=== PATIENT | female | born 1970 | race Caucasian/White ===

== ENCOUNTER 2017-06-15 08:19 | Day surgery (SDC) | payer OTHER ==
[2017-06-15] MEDS ORDERED: BENADRYL 25 MG CAPSULE PO PRN (08:58)
[2017-06-15] MEDS ORDERED: Sodium Chloride 0.9% 1000 ML 1,000 ML ONE (09:26)
[2017-06-15 09:36] VITALS: O2SAT 100
[2017-06-15 18:03] VITALS: BP 168/96; PULSE 88
== END 2017-06-15 17:00 | disposition home or self-care (01) ==
LOC: EDSTATUS 08:19 → INFUSION 08:19
PROVIDERS: ATTEND Family Medicine
DX: D64.9 Anemia, unspecified (principal)
CPT/HCPCS: 36415; 36430; 86850; 86900; 86901; 86922; 96365; 96366; P9016; A9270-GY

== ENCOUNTER 2017-06-22 06:00 | Day surgery (SDC) | payer OTHER ==
[2017-06-22] MEDS ORDERED: DIPRIVAN 200 MG/20 ML IV ONE (06:01)
[2017-06-22] MEDS ORDERED: Versed 2 MG/2 ML Injection IV ONE (06:01)
[2017-06-22] MEDS ORDERED: Lactated Ringers 1,000 ML IV SCH (06:30)
[2017-06-22 08:51] LABS: Mean Cell Volume 74.4 fl (78-100); Mean Platelet Volume 8.4 fl (6-9.5); Platelet Count 499 K/mm3 (150-450); Red Blood Count 4.38 M/mm3 (4.1-5.4); Red Cell Distribution Width 24.3 % (11.5-14.0); White Blood Count 9.1 K/mm3 (4.0-10.5)
[2017-06-22 08:52] LABS: Mean Corpuscular Hemoglobin 20.7 pg (26-32)
[2017-06-22 10:06] VITALS: O2SAT 97
[2017-06-22 10:13] VITALS: BP 151/98; PULSE 81
--- NOTE | 2017-06-22 10:45 | OP ---
SURGERY DATE/TIME: 06/22/2017 0755 PREOPERATIVE DIAGNOSIS: Anemia iron deficiency type. POSTOPERATIVE DIAGNOSIS: Duodenal ulcer. PROCEDURE: Esophagogastroduodenoscopy with biopsy. SURGEON: Dr. Manrique. ANESTHESIA: Medications were given by the anesthesia department. BRIEF HISTORY: The patient is a 46 year old white female who presents to the hospital now for endoscopic evaluation. She was found to have a hemoglobin of 5.2. She was given 2 units of blood. It did appear to be an iron deficiency-type anemia. The patient was felt the need to have endoscopic evaluation. She was appraised of the risks of the procedure including the risk of perforation, phlebitis, untoward reaction to medication, bleeding and missed lesions. The patient verbalized her understanding and desired to have the procedure performed. DESCRIPTION OF PROCEDURE: The patient was given the medications by the anesthesia department. She had continuous pulse oximetry, ECG monitoring, intermittent blood pressure monitoring and tidal CO2 monitoring during the examination. She was placed in the left lateral decubitus position. A bite block was placed and the flexible Olympus gastroscope was used to intubate the oropharynx. A view of the larynx was obtained and this was normal. The scope was passed in the esophagus which was normal throughout its length. The stomach was entered where normal gastric rugal folds were seen and these distended nicely with insufflation of air. The scope was passed along the greater curvature of the stomach to the antrum where there appeared to be erosion and developing ulcer present in prepyloric area. The pylorus was encountered and intubated. The duodenum was inspected and found duodenal ulcer in the duodenal bulb. There was no active bleeding in this area at this time. As the scope was withdrawn and retroflex view was obtained of the lesser curvature, fundus and cardia regions of the stomach and these appeared normal. The scope was then redirected towards the gastric antrum where we did note a little bit of bleeding after withdrawal of the scope to the pylorus. Biopsies were obtained in the antrum to rule out the presence of Helicobacter pylori-type organisms. It was noted that the patient was taking naproxen regularly and aspirin intermittently prior to the development of her anemia. The scope was removed from the patient who tolerated the procedure well and was sent back to the [facility] in good condition.
== END 2017-06-22 09:20 | disposition home or self-care (01) ==
LOC: SDC 06:00
PROVIDERS: ATTEND Family Medicine
PROC: 0DB78ZX Excision of Stomach, Pylorus, Via Natural or Artificial Opening Endoscopic, Diagnostic (ICD-10-PCS; principal; 2017-06-22)
DX: K26.9 Duodenal ulcer, unspecified as acute or chronic, without hemorrhage or perforation (principal)
CPT/HCPCS: 00740; 36415; 85027; J2250; J2704

== ENCOUNTER 2017-10-15 06:05 | Day surgery (SDC) | payer OTHER ==
[2017-10-15] MEDS ORDERED: DIPRIVAN 200 MG/20 ML IV ONE (06:06)
[2017-10-15] MEDS ORDERED: Ketamine HCl 50 MG/ML IV ONE (06:06)
[2017-10-15] MEDS ORDERED: Lactated Ringers 1,000 ML IV ONE (06:16)
[2017-10-15] MEDS ORDERED: Lactated Ringers 1,000 ML IV SCH (06:30)
[2017-10-15 08:40] VITALS: O2SAT 99
[2017-10-15 08:44] VITALS: BP 149/110; PULSE 74
--- NOTE | 2017-10-15 08:59 | OP ---
SURGERY DATE/TIME: 10/15/2017 0658 PREOPERATIVE DIAGNOSIS: Duodenal ulcer. POSTOPERATIVE DIAGNOSIS: Duodenitis, healed ulcer. PROCEDURE: Esophagogastroduodenoscopy. SURGEON: Dr. Manrique. ANESTHESIA: Medications were given by the anesthesia department. BRIEF HISTORY: The patient is a 47 year old white female with known history of ulcer disease. The patient reports that she has somewhat improved but the patient was felt the need have surveillance to be sure the ulcerated area had healed. Biopsies previously did not show any evidence of malignancy but due to the proximity to the stomach there was concern about potential and wanting to be sure that the area had completely cleared up. The patient was reappraised of the risks of the procedure including the risk of perforation, phlebitis, untoward reaction to medication, bleeding and missed lesions. The patient verbalized her understanding and desired to have the procedure performed. DESCRIPTION OF PROCEDURE: The patient had continuous pulse oximetry, ECG monitoring, intermittent blood pressure monitoring and tidal CO2 monitoring during the examination. She was placed in the left lateral decubitus position. A bite block was placed and the flexible Olympus gastroscope was used to intubate the oropharynx. A view of the larynx was obtained and was normal. The scope was easily passed in the esophagus which was normal throughout its length. The stomach was entered where normal gastric rugal folds were seen. These distended nicely with insufflation of air. The scope was passed along the greater curvature of the stomach to the antrum. The pylorus was encountered and intubated. The duodenum was found to be somewhat erythematous and edematous but the ulcerated area previously seen had completely healed over. The area was traversed at least three times to carefully inspect the area. It was somewhat tight but we were able to traverse it with ease and no problems were noted with this portion of the examination. The scope was withdrawn towards the stomach. Again, a retroflex view was obtained of the lesser curvature, fundus and cardia regions of the stomach and these appeared normal. The scope was then withdrawn from the patient who tolerated the procedure well and was sent back to outpatient recovery in good condition.
== END 2017-10-15 08:30 | disposition home or self-care (01) ==
LOC: SDC 06:05
PROVIDERS: ATTEND Family Medicine
PROC: 0DJ08ZZ Inspection of Upper Intestinal Tract, Via Natural or Artificial Opening Endoscopic (ICD-10-PCS; principal; 2017-10-15)
DX: K29.80 Duodenitis without bleeding (principal); Z87.11 Personal history of peptic ulcer disease
CPT/HCPCS: 00740; J2704

== ENCOUNTER 2020-06-27 18:50 | Emergency (ER) | payer OTHER ==
[2020-06-27] MEDS ORDERED: Sodium Chloride 0.9% 1000 ML 1,000 ML IV STA (19:31)
--- NOTE | 2020-06-27 19:50 | ERPHSYRPT ---
- History of Present Illness Time Seen by Provider: 06/27/20 19:15 Source: patient Patient Subjective Stated Complaint: pt c/o dizziness, weakness, chills, cold sweats, malaise Triage Nursing Assessment: pt c/o dizziness, weakness, chills, cold sweats, vomiting and malaise. She woke up this morning and was dizzy/light headed, ears felt full of congestion, very tired, unable to walk from one room to another with stopping to rest in between. Pt began vomiting at 1730 x2, denies any diarrhea or cough or temp. Lungs clear, heart tones reg, abd soft with active bs x4 quad, nontender. Physician History: Patient is a 49-year-old female presents to our ED with complaints of dizziness weakness chills cold sweats malaise and vomiting that started this morning. Symptoms have been ongoing. Patient feels weak. No COVID exposure that she is aware of. No chest pain or shortness of breath. No diarrhea. No rash. Symptoms are mild to moderate in intensity. No specific worsening or improving factors. Patient voices no other complaints at this time. Timing/Duration: today Severity: moderate Modifying Factors: Improves With: nothing Associated Symptoms: nausea, vomiting, shortness of breath, chills, malaise, No rash Allergies/Adverse Reactions: No Known Drug Allergies Allergy (Verified 06/27/20 19:20) Home Medications: Multivitamin [Daily Multivitamin] 1 each PO DAILY 06/15/17 [History] Ferrous Sulfate 325 mg [Feosol 325 mg] 325 mg PO DAILY 06/22/17 [History] [place]-3 Fatty Acids/Fish Oil [Fish Oil 1,000 mg Capsule] 1,000 mg PO DAILY 10/15/17 [History] Cetirizine HCl [Zyrtec] 10 mg PO DAILY 06/27/20 [History] Esomeprazole Magnesium [Nexium] 20 mg PO DAILY 06/27/20 [History] Hx Tetanus, Diphtheria Vaccination/Date Given: No Hx Influenza Vaccination/Date Given: No Hx Pneumococcal Vaccination/Date Given: No Immunizations Up to Date: No Travel Risk - International Travel Have you traveled outside of the country in past 3 weeks: No - Coronavirus Screening Symptoms: Vomiting/Diarrhea Close contact with a COVID-19 positive Pt in past 14-21 Days: No - Review of Systems Constitutional: No Symptoms, No Fever, No Chills Eyes: No Symptoms Ears, Nose, & Throat: No Symptoms Respiratory: No Symptoms, No Cough, No Dyspnea Cardiac: No Symptoms, No Chest Pain, No Edema, No Syncope Abdominal/Gastrointestinal: No Symptoms, No Abdominal Pain, No Nausea, No Vomiting, No Diarrhea Genitourinary Symptoms: No Symptoms, No Dysuria Musculoskeletal: No Symptoms, No Back Pain, No Neck Pain Skin: No Symptoms, No Rash Neurological: No Symptoms, No Dizziness, No Focal Weakness, No Sensory Changes Psychological: No Symptoms Endocrine: No Symptoms Hematologic/Lymphatic: No Symptoms Immunological/Allergic: No Symptoms All Other Systems: Reviewed and Negative - Past Medical History Pertinent Past Medical History: Yes Neurological History: Other ENT History: No Pertinent History Cardiac History: No Pertinent History Respiratory History: No Pertinent History Endocrine Medical History: No Pertinent History Musculoskeletal History: Arthritis GI Medical History: Ulcer History: No Pertinent History Psycho-Social History: Anxiety Female Reproductive Disorders: No Pertinent History Other Medical History: anemia. upper spinal/nerve pain - Past Surgical History Past Surgical History: Yes Neuro Surgical History: No Pertinent History Cardiac: No Pertinent History Respiratory: No Pertinent History Gastrointestinal: No Pertinent History Genitourinary: No Pertinent History Musculoskeletal: No Pertinent History Female Surgical History: Hysterectomy Other Surgical History: egd - Social History Smoking Status: Current every day smoker How long have you smoked: 20 yrs Exposure to second hand smoke: No Drug Use: none Patient Lives Alone: No - Female History Hx Now: No - Nursing Vital Signs Nursing Vital Signs: Initial Vital Signs Temperature 98.1 F 06/27/20 19:08 Pulse Rate 96 H 06/27/20 19:08 Respiratory Rate 18 06/27/20 19:08 Blood Pressure 119/82 06/27/20 19:08 O2 Sat by Pulse Oximetry 99 06/27/20 19:08 Pain Scale Pain Intensity 0 - Physical Exam General Appearance: no apparent distress, alert Eye Exam: PERRL/EOMI, eyes nml inspection Ears, Nose, Throat Exam: normal ENT inspection, TMs normal, pharynx normal, moist mucous membranes Neck Exam: normal inspection, non-tender, supple, full range of motion Respiratory Exam: normal breath sounds, lungs clear, No respiratory distress Cardiovascular Exam: regular rate/rhythm, normal heart sounds, normal peripheral pulses Gastrointestinal/Abdomen Exam: soft, normal bowel sounds, No tenderness, No mass Back Exam: normal inspection, normal range of motion, No CVA tenderness, No vertebral tenderness Extremity Exam: normal inspection, normal range of motion, pelvis stable Neurologic Exam: alert, oriented x 3, cooperative, normal mood/affect, nml c erebellar function, nml station & gait, sensation nml, No motor deficits Skin Exam: normal color, warm, dry, No rash Lymphatic Exam: No adenopathy SpO2 Interpretation: normal SpO2: 99 O2 Delivery: Room Air - Course Nursing assessment & vital signs reviewed: Yes EKG Interpreted by Me: RATE (49), Sinus Rhythm, Left [place] Deviation, NORMAL INTERVALS - Radiology Exams Chest X-ray Interpretation: Interpreted by me (Normal chest x-ray. No effusion no co nsolidation no infiltrate. Normal bony thorax.), Reviewed by me Ordered Tests: Active Orders 24 hr Category Date Time Status Monologist STAT Care 06/27/20 19:34 Active EKG-ER Only STAT Care 06/27/20 19:31 Active IV Insertion STAT Care 06/27/20 19:34 Active Pulse Oximetry (ED) STAT Care 06/27/20 19:31 Active CHEST 1 VIEW (PORTABLE) Stat Exams 06/27/20 19:31 Taken BLOOD CULTURE Stat Lab 06/27/20 20:10 Received CBC W DIFF Stat Lab 06/27/20 20:10 Completed CMP Stat Lab 06/27/20 20:10 Completed HCG,QUALITATIVE URINE Stat Lab 06/27/20 21:33 Completed UA W/RFX UR CULTURE Stat Lab 06/27/20 21:33 Completed Medication Summary Generic Name Dose Route Start Last Admin Trade Name Freq PRN Reason Stop Dose Admin Pantoprazole Sodium 80 mg/ 500 mls @ 50 mls/hr 06/27/20 22:30 Sodium Chloride IV 07/27/20 22:29 .Q10H HOWARD Discontinued Medications Generic Name Dose Route Start Last Admin Trade Name Freq PRN Reason Stop Dose Admin Sodium Chloride 1,000 mls @ 999 mls/hr 06/27/20 19:31 06/27/20 19:55 Sodium Chloride 0.9% 1000 Ml IV 06/27/20 20:31 999 mls/hr .Q1H1M STA Administration Sodium Chloride Confirm 06/27/20 19:51 Sodium Chloride 0.9% 1000 Ml Administered 06/27/20 19:52 Dose 1,000 mls @ ud .ROUTE .STK-MED ONE Sodium Chloride Confirm 06/27/20 22:21 Sodium Chloride 0.9% 500 Ml Administered 06/27/20 22:22 Dose 500 mls @ ud IV .STK-MED ONE Pantoprazole Sodium Confirm 06/27/20 22:21 Protonix 40 Mg Iv Administered 06/27/20 22:22 Dose 80 mg IV .STK-MED ONE Lab/Rad Data: Laboratory Result Diagrams 06/27/20 20:10 06/27/20 20:10 Laboratory Results 06/27/20 06/27/20 06/27/20 Range/Units 21:33 21:33 20:10 WBC (4.0-10.5) K/mm3 RBC (4.1-5.4) M/mm3 Hgb (12.0-16.0) gm/dl Hct (35-47) % MCV (78-100) fl MCH (26-32) pg MCHC (32-36) g/dl RDW (11.5-14.0) % Plt Count (150-450) K/mm3 MPV (7.5-11.0) fl Gran % (36.0-66.0) % Eos # (Auto) (0-0.5) Absolute Lymphs (auto) (1.0-4.6) Absolute Monos (auto) (0.0-1.3) Lymphocytes % (24.0-44.0) % Monocytes % (0.0-12.0) % Eosinophils % (0.00-5.0) % Basophils % (0.0-0.4) % Absolute Granulocytes (1.4-6.9) Basophils # (0-0.4) Sodium 137 (137-145) mmol/L Potassium 3.4 L (3.5-5.1) mmol/L Chloride 107 (98-107) mmol/L Carbon Dioxide 25 (22-30) mmol/L Anion Gap 8.6 (5-15) MEQ/L BUN 52 H (7-17) mg/dL Creatinine 0.55 (0.52-1.04) mg/dL Estimated GFR > 60.0 ML/MIN Glucose 122 H (74-106) mg/dL Calcium 8.2 L (8.4-10.2) mg/dL Total Bilirubin 0.30 (0.2-1.3) mg/dL AST 29 (14-36) U/L ALT 14 (0-35) U/L Alkaline Phosphatase 48 (38-126) U/L Serum Total Protein 6.1 L (6.3-8.2) g/dL Albumin 3.6 (3.5-5.0) g/dL Urine Color YELLOW (YELLOW) Urine Appearance CLEAR (CLEAR) Urine pH 6.0 (5-6) Ur Specific [place] 1.015 (1.005-1.025) Urine Protein NEGATIVE (Negative) Urine Ketones NEGATIVE (NEGATIVE) Urine Blood NEGATIVE (0-5) Alistair/ul Urine Nitrite NEGATIVE (NEGATIVE) Urine Bilirubin NEGATIVE (NEGATIVE) Urine Urobilinogen NEGATIVE (0-1) mg/dL Ur Leukocyte Esterase NEGATIVE (NEGATIVE) Urine WBC (Auto) 3-5 (0-5) /HPF Urine RBC (Auto) NONE (0-2) /HPF U Hyaline Cast (Auto) 0-2 (0-2) /LPF U Epithel Cells (Auto) RARE (FEW) /HPF Urine Bacteria (Auto) NONE (NEGATIVE) /HPF Urine Mucus (Auto) SLIGHT (NEGATIVE) /HPF Urine Culture Reflexed NO (NO) Urine Glucose NEGATIVE (NEGATIVE) mg/dL Urine HCG, Qual NEGATIVE (Negative) Influenza Type A Ag (NEGATIVE) Influenza Type B Ag (NEGATIVE) RSV (PCR) (Negative) 06/27/20 06/27/20 Range/Units 20:10 20:10 WBC 21.6 H (4.0-10.5) K/mm3 RBC 2.51 L (4.1-5.4) M/mm3 Hgb 8.5 L (12.0-16.0) gm/dl Hct 26.1 L (35-47) % MCV 104.0 H (78-100) fl MCH 33.9 H (26-32) pg MCHC 32.6 (32-36) g/dl RDW 11.8 (11.5-14.0) % Plt Count 289 (150-450) K/mm3 MPV 9.8 (7.5-11.0) fl Gran % 86.6 H (36.0-66.0) % Eos # (Auto) 0.03 (0-0.5) Absolute Lymphs (auto) 2.24 (1.0-4.6) Absolute Monos (auto) 0.59 (0.0-1.3) Lymphocytes % 10.4 L (24.0-44.0) % Monocytes % 2.7 (0.0-12.0) % Eosinophils % 0.1 (0.00-5.0) % Basophils % 0.2 (0.0-0.4) % Absolute Granulocytes 18.69 H (1.4-6.9) Basophils # 0.04 (0-0.4) Sodium (137-145) mmol/L Potassium (3.5-5.1) mmol/L Chloride (98-107) mmol/L Carbon Dioxide (22-30) mmol/L Anion Gap (5-15) MEQ/L BUN (7-17) mg/dL Creatinine (0.52-1.04) mg/dL Estimated GFR ML/MIN Glucose (74-106) mg/dL Calcium (8.4-10.2) mg/dL Total Bilirubin (0.2-1.3) mg/dL AST (14-36) U/L ALT (0-35) U/L Alkaline Phosphatase (38-126) U/L Serum Total Protein (6.3-8.2) g/dL Albumin (3.5-5.0) g/dL Urine Color (YELLOW) Urine Appearance (CLEAR) Urine pH (5-6) Ur Specific [place] (1.005-1.025) Urine Protein (Negative) Urine Ketones (NEGATIVE) Urine Blood (0-5) Alistair/ul Urine Nitrite (NEGATIVE) Urine Bilirubin (NEGATIVE) Urine Urobilinogen (0-1) mg/dL Ur Leukocyte Esterase (NEGATIVE) Urine WBC (Auto) (0-5) /HPF Urine RBC (Auto) (0-2) /HPF U Hyaline Cast (Auto) (0-2) /LPF U Epithel Cells (Auto) (FEW) /HPF Urine Bacteria (Auto) (NEGATIVE) /HPF Urine Mucus (Auto) (NEGATIVE) /HPF Urine Culture Reflexed (NO) Urine Glucose (NEGATIVE) mg/dL Urine HCG, Qual (Negative) Influenza Type A Ag NEGATIVE (NEGATIVE) Influenza Type B Ag NEGATIVE (NEGATIVE) RSV (PCR) NEGATIVE (Negative) - Progress Progress: improved Progress Note: 06/27/20 22:23 Patient reassessed. She feels better. Reveals a hemoglobin of 8.5. Leukocytosis of 21.6. Potassium of 3.4. BUN 52. Patient admits she has had a history of bleeding ulcer. Patient states that she has observed her stools to be darker than normal. Case discussed with Dr. Manrique. We will transfer patient to [facility] for hematology and GI consult. Plan of care discussed with patient. She agrees to transfer for higher level of care. Protonix infusion administered. 06/27/20 22:[address] Ceballos (Case discussed with Dr. Manrique. In light of patient's profound anemia and possible GI bleed we will transfer to [facility] for GI and hematology evaluation/consultation.) Counseled pt/family regarding: lab results, diagnosis, rad results - Departure Departure Disposition: Transfer Clinical Impression: Symptomatic anemia, Elevated BUN, GI bleed, Leukocytosis Condition: Stable Critical Care Time: No Referrals: JOSE CARLOS MANRIQUE [Primary Care Provider] -
[2020-06-27] MEDS ORDERED: Sodium Chloride 0.9% 1000 ML 1,000 ML ONE (19:51)
[2020-06-27 20:29] LABS: Absolute Neutrophil Ct (ANC) 18.69 (1.4-6.9); BASOPHIL % 0.2 % (0.0-0.4); Basophil (Absolute #) 0.04 (0-0.4); Eosinophil % 0.1 % (0.00-5.0); Eosinophil (Absolute #) 0.03 (0-0.5); Hematocrit 26.1 % (35-47); Hemoglobin 8.5 gm/dl (12.0-16.0); Lymphocyte (Absolute #) 2.24 (1.0-4.6); Lymphocytes % 10.4 % (24.0-44.0); Mean Corpuscular Hemoglobin 33.9 pg (26-32); Mean Corpuscular Hgb Concent. 32.6 g/dl (32-36); Mean Platelet Volume 9.8 fl (7.5-11.0); Monocyte (Absolute #) 0.59 (0.0-1.3); Monocytes % 2.7 % (0.0-12.0); Neutrophil % 86.6 % (36.0-66.0); Platelet Count 289 K/mm3 (150-450); Red Blood Count 2.51 M/mm3 (4.1-5.4); Red Cell Distribution Width 11.8 % (11.5-14.0); White Blood Count 21.6 K/mm3 (4.0-10.5)
[2020-06-27 20:46] LABS: ALBUMIN 3.6 g/dL (3.5-5.0); ALKALINE PHOSPHATASE 48 U/L (38-126); ANION GAP 8.6 MEQ/L (5-15); BLOOD UREA NITROGEN 52 mg/dL (7-17); CHLORIDE 107 mmol/L (98-107); Calcium 8.2 mg/dL (8.4-10.2); Carbon Dioxide 25 mmol/L (22-30); Creatinine 1 0.55 mg/dL (0.52-1.04); EST GLOMERULAR FILTRATION RATE > 60.0 ML/MIN; Glucose 122 mg/dL (74-106); Potassium 3.4 mmol/L (3.5-5.1); SGOT/AST 29 U/L (14-36); SGPT/ALT 14 U/L (0-35); SODIUM 137 mmol/L (137-145); Total Protein 6.1 g/dL (6.3-8.2)
[2020-06-27 21:12] LABS: INFLUENZA A NEGATIVE (NEGATIVE); INFLUENZA B NEGATIVE (NEGATIVE); RESPIRATORY SYNCTIAL VIRUS NEGATIVE (Negative)
[2020-06-27 22:00] LABS: Appearance CLEAR (CLEAR); Bilirubin NEGATIVE (NEGATIVE); Blood NEGATIVE Ery/ul (0-5); Epithelial Cells RARE /HPF (FEW); Glucose NEGATIVE (NEGATIVE); Hyaline Casts 0-2 /LPF (0-2); Ketones NEGATIVE (NEGATIVE); Leukocyte Esterase NEGATIVE (NEGATIVE); Mucus SLIGHT /HPF (NEGATIVE); Nitrite NEGATIVE (NEGATIVE); Protein,Urine Dip NEGATIVE (Negative); Specific Gravity 1.015 (1.005-1.025); Urobilinogen NEGATIVE mg/dL (0-1)
[2020-06-27 22:16] VITALS: O2SAT 99
[2020-06-27] MEDS ORDERED: PROTONIX 40 MG IV IV ONE (22:21)
[2020-06-27] MEDS ORDERED: Sodium Chloride 0.9% 500 ML 500 ML IV ONE (22:21)
[2020-06-27] MEDS ORDERED: PROTONIX 40 MG IV*** 80 MG in Sodium Chloride 0.9% 500 ML 500 ML IV SCH (22:30)
[2020-06-27 23:23] VITALS: BP 148/87; PULSE 99
--- NOTE | 2020-06-28 21:24 | XRAY ---
Exam: AP upright portable chest film from 06/27/2020. Comparison: None. Indication: Shortness of breath, cold sweats, vomiting for 1 day. Findings: The film was obtained in a mildly lordotic projection. The heart size and contour are normal. Both the ascending and descending thoracic aorta is moderately tortuous. An azygos fissure is seen within the medial right lung apex representing a normal variant. The remainder of the clarence and mediastinal structures appears unremarkable. The lungs are adequately inflated. No air space infiltrates, vascular congestion, pneumothorax, or pleural fluid is seen. No acute osseous process is seen. Impression: 1. No acute cardiopulmonary disease is seen.
== END 2020-06-27 23:14 | disposition short-term general hospital (02) ==
LOC: ED 18:50
DX: D64.89 Other specified anemias (principal); R94.4 Abnormal results of kidney function studies; K92.2 Gastrointestinal hemorrhage, unspecified; D72.829 Elevated white blood cell count, unspecified; Z79.899 Other long term (current) drug therapy; R42 Dizziness and giddiness; R53.81 Other malaise; R53.1 Weakness; R11.2 Nausea with vomiting, unspecified; R06.02 Shortness of breath
CPT/HCPCS: 36000; 36415; 71045; 80053; 81001; 84703; 85025; 87040; 87631; 93005; 93041; 94760; 96360; 96365; 99285

== ENCOUNTER 2022-05-06 10:20 | Inpatient (IN) | payer OTHER ==
[2022-05-06] MEDS ORDERED: BABY ASPIRIN 81 MG CHEW PO ONE (10:36)
--- NOTE | 2022-05-06 10:36 | ERPHSYRPT ---
- History of Present Illness Time Seen by Provider: 05/06/22 10:36 Historian: patient Exam Limitations: no limitations Physician History: This is a 51-year-old white female has a history of anxiety issues and presents with approximate 3-day history of headache body aches vomiting nausea chest pain and shortness of breath. Her daughter has similar symptoms. She is unable to hold oral intake in. She has a family history significant for cardiac issues. Activities at Onset: none Quality: aching Chest Pain Radiation: no radiation Severity of Pain-Max: mild Severity of Pain-Current: mild Modifying Factors: Improves With: nothing Associated Symptoms: nausea, vomiting, shortness of breath, headache, No abdominal pain Prior Chest Pain/Cardiac Workup: no prior chest pain Nitro Today/Relief: no nitro taken today Aspirin Treatment Today: no aspirin today Allergies/Adverse Reactions: No Known Drug Allergies Allergy (Verified 05/06/22 11:02) Home Medications: Multivitamin [Daily Multivitamin] 1 each PO DAILY 06/15/17 [History] Ferrous Sulfate 325 mg [Feosol 325 mg] 325 mg PO DAILY 06/22/17 [History] [place]-3 Fatty Acids/Fish Oil [Fish Oil 1,000 mg Capsule] 1,000 mg PO DAILY 10/15/17 [History] Cetirizine HCl [Zyrtec] 10 mg PO DAILY 06/27/20 [History] Esomeprazole Magnesium [Nexium] 20 mg PO DAILY 06/27/20 [History] Hx Tetanus, Diphtheria Vaccination/Date Given: No Hx Influenza Vaccination/Date Given: No Hx Pneumococcal Vaccination/Date Given: No Travel Risk - International Travel Have you traveled outside of the country in past 3 weeks: No - Coronavirus Screening Are you exhibiting any of the following symptoms?: Yes Symptoms: Shortness of Breath, Vomiting/Diarrhea, Headaches/Body Aches/Fatigue Close contact with a COVID-19 positive Pt in past 14-21 Days: No - Review of Systems Constitutional: No Symptoms Eyes: No Symptoms Ears, Nose, & Throat: No Symptoms Respiratory: No Symptoms Cardiac: Chest Pain Abdominal/Gastrointestinal: Nausea, Vomiting, No Abdominal Pain Genitourinary Symptoms: No Symptoms Musculoskeletal: Arthralgias, Myalgias Skin: No Symptoms Neurological: No Symptoms Psychological: No Symptoms Endocrine: No Symptoms Hematologic/Lymphatic: No Symptoms Immunological/Allergic: No Symptoms All Other Systems: Reviewed and Negative - Past Medical History Pertinent Past Medical History: Yes Neurological History: Other ENT History: No Pertinent History Cardiac History: No Pertinent History Respiratory History: No Pertinent History Endocrine Medical History: No Pertinent History Musculoskeletal History: Arthritis GI Medical History: Ulcer History: No Pertinent History Psycho-Social History: Anxiety Female Reproductive Disorders: No Pertinent History Other Medical History: anemia. upper spinal/nerve pain - Past Surgical History Past Surgical History: Yes Neuro Surgical History: No Pertinent History Cardiac: No Pertinent History Respiratory: No Pertinent History Gastrointestinal: No Pertinent History Genitourinary: No Pertinent History Musculoskeletal: No Pertinent History Female Surgical History: Hysterectomy Other Surgical History: egd - Social History Smoking Status: Current every day smoker How long have you smoked: 20 yrs Exposure to second hand smoke: No Drug Use: none Patient Lives Alone: No - Nursing Vital Signs Nursing Vital Signs: Initial Vital Signs Temperature 98.8 F 05/06/22 10:25 Pulse Rate 74 05/06/22 10:25 Respiratory Rate 20 05/06/22 10:25 Blood Pressure 191/131 05/06/22 10:25 O2 Sat by Pulse Oximetry 97 05/06/22 10:25 Pain Scale Pain Intensity 7 - Physical Exam General Appearance: no apparent distress, alert, anxiety Eye Exam: PERRL/EOMI, eyes nml inspection Ears, Nose, Throat Exam: normal ENT inspection, moist mucous membranes Neck Exam: normal inspection, non-tender, supple, full range of motion Respiratory Exam: normal breath sounds, chest tenderness, lungs clear, airway intact, No respiratory distress Cardiovascular Exam: regular rate/rhythm, normal heart sounds, normal peripheral pulses Gastrointestinal/Abdomen Exam: soft, normal bowel sounds, No tenderness Pelvic Exam: not done Rectal Exam: not done Back Exam: normal inspection, normal range of motion, No CVA tenderness, No vertebral tenderness Extremity Exam: normal inspection, normal range of motion, pelvis stable Neurologic Exam: alert, oriented x 3, cooperative, physical design engineer II-XII nml as tested, normal mood/affect, nml cerebellar function, nml station & gait, sensation nml Skin Exam: normal color, warm, dry Lymphatic Exam: No adenopathy SpO2 Interpretation: normal O2 Delivery: Room Air - Course Nursing assessment & vital signs reviewed: Yes EKG Interpreted by Me: RATE (71), Sinus Rhythm, NORMAL AXIS, NORMAL INTERVALS, NORMAL QRS, NORMAL ST-T, Other (No acute ischemic changes) Ordered Tests: Active Orders 24 hr Category Date Time Status Chyron Operator STAT Care 05/06/22 10:37 Active EKG-ER Only STAT Care 05/06/22 10:36 Active IV Insertion STAT Care 05/06/22 10:36 Active Pulse Oximetry (ED) STAT Care 05/06/22 10:36 Active CHEST 1 VIEW (PORTABLE) Stat Exams 05/06/22 10:37 Completed CHEST WITH CONTRAST [CT] Stat Exams 05/06/22 11:48 Completed CBC W DIFF Stat Lab 05/06/22 10:40 Completed CMP Stat Lab 05/06/22 10:40 Completed D-DIMER QUANTITATIVE Stat Lab 05/06/22 10:40 Completed Pine Screen Stat Lab 05/06/22 11:25 Completed TROPONIN Q3H Lab 05/06/22 10:40 Completed TROPONIN Q3H Lab 05/06/22 13:45 Ordered TROPONIN Q3H Lab 05/06/22 16:45 Ordered TROPONIN Q3H Lab 05/06/22 19:45 Ordered TROPONIN Q3H Lab 05/06/22 22:45 Ordered Transfer Order Routine Transfer 05/06/22 Ordered Medication Summary Discontinued Medications Generic Name Dose Route Start Last Admin Trade Name Freq PRN Reason Stop Dose Admin Aspirin 324 mg 05/06/22 10:36 05/06/22 10:45 Aspirin 81 Mg Tab.Chew PO 05/06/22 10:37 324 mg STAT ONE Administration Enalaprilat 1.25 mg 05/06/22 12:20 05/06/22 12:30 Enalaprilat 2.5 Mg Injection IV 05/06/22 12:21 1.25 mg STAT ONE Administration Enalaprilat Confirm 05/06/22 12:30 Enalaprilat 2.5 Mg Injection Administered 05/06/22 12:31 Dose 2.5 mg IV .STK-MED ONE Enoxaparin Sodium 70 mg 05/06/22 13:03 Enoxaparin Sodium 80 Mg/0.8 Ml Syringe SQ 05/06/22 13:04 STAT ONE Sodium Chloride 1,000 mls @ 999 mls/hr 05/06/22 11:13 05/06/22 12:31 Sodium Chloride 0.9% 1000 Ml IV 05/06/22 12:13 Infused .Q1H1M STA Infusion Sodium Chloride Confirm 05/06/22 11:16 Sodium Chloride 0.9% 1000 Ml Administered 05/06/22 11:17 Dose 1,000 mls @ ud .ROUTE .STK-MED ONE Ondansetron HCl 4 mg 05/06/22 11:13 05/06/22 11:17 Ondansetron Hcl 4 Mg/2 Ml Vial IV 05/06/22 11:14 4 mg STAT ONE Administration Ondansetron HCl Confirm 05/06/22 11:16 Ondansetron Hcl 4 Mg/2 Ml Vial Administered 05/06/22 11:17 Dose 4 mg .ROUTE .STK-MED ONE Potassium Chloride 10 meq 05/06/22 11:47 05/06/22 12:00 Potassium Chloride Tab 10 Meq Tab PO 05/06/22 11:48 10 meq STAT ONE Administration Potassium Chloride Confirm 05/06/22 12:00 Potassium Chloride Tab 10 Meq Tab Administered 05/06/22 12:01 Dose 10 meq PO .STK-MED ONE Lab/Rad Data: Laboratory Result Diagrams 05/06/22 10:40 05/06/22 10:40 Laboratory Results 05/06/22 05/06/22 05/06/22 Range/Units 11:26 11:25 10:40 WBC (4.0-10.5) x10^3/uL RBC (4.1-5.4) x10^6/uL Hgb (12.0-16.0) g/dL Hct (35-47) % MCV (78-100) fL MCH (26-32) pg MCHC (32-36) g/dL RDW (11.5-14.0) % Plt Count (150-450) x10^3/uL MPV (7.5-11.0) fL Gran % (36.0-66.0) % Immature Gran % (Auto) (0.00-0.4) % Nucleat RBC Rel Count (0.00-0.1) % Eos # (Auto) (0-0.5) x10^3/uL Immature Gran # (Auto) (0.00-0.03) x10^3u/L Absolute Lymphs (auto) (1.0-4.6) x10^3/uL Absolute Monos (auto) (0.0-1.3) x10^3/uL Absolute Nucleated RBC (0.00-0.01) x10^3u/L Lymphocytes % (24.0-44.0) % Monocytes % (0.0-12.0) % Eosinophils % (0.00-5.0) % Basophils % (0.0-0.4) % Absolute Granulocytes (1.4-6.9) x10^3/uL Basophils # (0-0.4) x10^3/uL D-Dimer (0.0-0.50) mg/L Sodium (137-145) mmol/L Potassium (3.5-5.1) mmol/L Chloride (98-107) mmol/L Carbon Dioxide (22-30) mmol/L Anion Gap (5-15) MEQ/L BUN (7-17) mg/dL Creatinine (0.52-1.04) mg/dL Estimated GFR ML/MIN Glucose (74-106) mg/dL Calcium (8.4-10.2) mg/dL Total Bilirubin (0.2-1.3) mg/dL AST (14-36) U/L ALT (0-35) U/L Alkaline Phosphatase (38-126) U/L Troponin I 0.028 (0.000-0.034) ng/mL Serum Total Protein (6.3-8.2) g/dL Albumin (3.5-5.0) g/dL Monoscreen NEGATIVE (Negative) Influenza Type A Ag NEGATIVE (NEGATIVE) Influenza Type B Ag NEGATIVE (NEGATIVE) RSV (PCR) NEGATIVE (Negative) SARS-CoV-2 (PCR) NEGATIVE (NEGATIVE) 05/06/22 05/06/22 05/06/22 Range/Units 10:40 10:40 10:40 WBC 14.6 H (4.0-10.5) x10^3/uL RBC 4.59 (4.1-5.4) x10^6/uL Hgb 15.5 (12.0-16.0) g/dL Hct 44.1 (35-47) % MCV 96.1 (78-100) fL MCH 33.8 H (26-32) pg MCHC 35.1 (32-36) g/dL RDW 11.1 L (11.5-14.0) % Plt Count 393 (150-450) x10^3/uL MPV 9.0 (7.5-11.0) fL Gran % 84.7 H (36.0-66.0) % Immature Gran % (Auto) 0.4 (0.00-0.4) % Nucleat RBC Rel Count 0.0 (0.00-0.1) % Eos # (Auto) 0.02 (0-0.5) x10^3/uL Immature Gran # (Auto) 0.06 H (0.00-0.03) x10^3u/L Absolute Lymphs (auto) 1.39 (1.0-4.6) x10^3/uL Absolute Monos (auto) 0.72 (0.0-1.3) x10^3/uL Absolute Nucleated RBC 0.00 (0.00-0.01) x10^3u/L Lymphocytes % 9.5 L (24.0-44.0) % Monocytes % 4.9 (0.0-12.0) % Eosinophils % 0.1 (0.00-5.0) % Basophils % 0.4 (0.0-0.4) % Absolute Granulocytes 12.35 H (1.4-6.9) x10^3/uL Basophils # 0.06 (0-0.4) x10^3/uL D-Dimer 0.82 H* (0.0-0.50) mg/L Sodium 133 L (137-145) mmol/L Potassium 3.2 L (3.5-5.1) mmol/L Chloride 93 L (98-107) mmol/L Carbon Dioxide 26 (22-30) mmol/L Anion Gap 17.7 H (5-15) MEQ/L BUN 14 (7-17) mg/dL Creatinine 0.78 (0.52-1.04) mg/dL Estimated GFR > 60.0 ML/MIN Glucose 98 (74-106) mg/dL Calcium 9.9 (8.4-10.2) mg/dL Total Bilirubin 0.70 (0.2-1.3) mg/dL AST 27 (14-36) U/L ALT 19 (0-35) U/L Alkaline Phosphatase 86 (38-126) U/L Troponin I (0.000-0.034) ng/mL Serum Total Protein 7.7 (6.3-8.2) g/dL Albumin 4.8 (3.5-5.0) g/dL Monoscreen (Negative) Influenza Type A Ag (NEGATIVE) Influenza Type B Ag (NEGATIVE) RSV (PCR) (Negative) SARS-CoV-2 (PCR) (NEGATIVE) - Progress Progress: improved, re-examined Air Movement: good Progress Note: 05/06/22 11:25 Chest x-ray shows no acute cardiopulmonary process. 05/06/22 13:09 Medical decision making: This patient has hypertension that has not been previously diagnosed. In addition, she was found to have a small nonoccluding right upper lobe pulmonary embolus on CTA of the chest. I spoke with Dr. Hedrick who is covering for Dr. Manrique. We are going to place her in observation on a monitored bed. We will give her Lovenox here in the emergency room and continue subcutaneous Lovenox tomorrow morning as well as a dose of Eliquis orally. We will repeat the labs tomorrow morning. Blood Culture(s) Obtained: No Antibiotics given: No Discussed with : Jose Counseled pt/family regarding: lab results, diagnosis, need for follow-up, rad results - Departure Departure Disposition: Observation Clinical Impression: Hypertensive urgency, Pulmonary embolus Condition: Stable Critical Care Time: Yes Critical Care Time(excluding separately billable procedures): Critical 30-74 mins (35 minutes) Referrals: JOSE CARLOS MANRIQUE [Primary Care Provider] - Follow up/PCP as directed
[2022-05-06 10:51] LABS: Absolute Neutrophil Ct (ANC) 12.35 x10^3/uL (1.4-6.9); Basophil (Absolute #) 0.06 x10^3/uL (0-0.4); Eosinophil % 0.1 % (0.00-5.0); Eosinophil (Absolute #) 0.02 x10^3/uL (0-0.5); Hematocrit 44.1 % (35-47); Hemoglobin 15.5 g/dL (12.0-16.0); Lymphocyte (Absolute #) 1.39 x10^3/uL (1.0-4.6); Lymphocytes % 9.5 % (24.0-44.0); Mean Cell Volume 96.1 fL (78-100); Mean Corpuscular Hemoglobin 33.8 pg (26-32); Mean Corpuscular Hgb Concent. 35.1 g/dL (32-36); Monocyte (Absolute #) 0.72 x10^3/uL (0.0-1.3); Monocytes % 4.9 % (0.0-12.0); Neutrophil % 84.7 % (36.0-66.0); Platelet Count 393 x10^3/uL (150-450); Red Blood Count 4.59 x10^6/uL (4.1-5.4); Red Cell Distribution Width 11.1 % (11.5-14.0); White Blood Count 14.6 x10^3/uL (4.0-10.5)
--- NOTE | 2022-05-06 11:03 | XRAY ---
Indication: Chest pain. Comparison: June 27, 2020 Portable chest again demonstrates normal heart and lungs with incidental calcified granulomas, azygos lobe, and tortuous descending aorta. Bony thorax intact again with mild osteopenia and degenerative changes. No new/acute findings.
[2022-05-06 11:06] LABS: ALBUMIN 4.8 g/dL (3.5-5.0); ALKALINE PHOSPHATASE 86 U/L (38-126); ANION GAP 17.7 MEQ/L (5-15); BLOOD UREA NITROGEN 14 mg/dL (7-17); CHLORIDE 93 mmol/L (98-107); Calcium 9.9 mg/dL (8.4-10.2); Carbon Dioxide 26 mmol/L (22-30); Creatinine 1 0.78 mg/dL (0.52-1.04); EST GLOMERULAR FILTRATION RATE > 60.0 ML/MIN; Glucose 98 mg/dL (74-106); Potassium 3.2 mmol/L (3.5-5.1); SGOT/AST 27 U/L (14-36); SGPT/ALT 19 U/L (0-35); SODIUM 133 mmol/L (137-145); Total Protein 7.7 g/dL (6.3-8.2)
[2022-05-06] MEDS ORDERED: Zofran 4 MG/2 ML VIAL IV ONE (11:13)
[2022-05-06] MEDS ORDERED: Sodium Chloride 0.9% 1000 ML 1,000 ML IV STA (11:13)
[2022-05-06] MEDS ORDERED: Sodium Chloride 0.9% 1000 ML 1,000 ML ONE (11:16)
[2022-05-06] MEDS ORDERED: Zofran 4 MG/2 ML VIAL ONE (11:16)
[2022-05-06] MEDS ORDERED: Klor Con PO ONE ×2 (11:47→12:00)
[2022-05-06] MEDS ORDERED: ENALAPRILAT 2.5 MG INJECTION IV ONE ×2 (12:20→12:30)
--- NOTE | 2022-05-06 12:29 | XRAY ---
Indication: Short of breath and chest pain. Elevated d-dimer. Multiple contiguous axial images obtained through the chest using 100 cc Isovue 370 contrast and PE protocol. Comparison: None Good opacification of the pulmonary arteries to include the lobar and segmental branches. Small nonoccluding pulmonary embolus seen in the distal right upper lobe pulmonary artery extending into the anterior segmental branch. Heart not enlarged. Aorta is normal in caliber with tortuous descending aorta. No pathologic mediastinal/hilar lymphadenopathy. Lungs demonstrates small right upper lobe calcified granuloma and anatomic variant for azygos lobe. No suspicious pulmonary mass, infiltrate, or effusion. Bony thorax intact with mild osteopenia and mild/moderate degenerative changes throughout the spine. Limited upper abdomen including adrenal glands are unremarkable. Impression: 1. Small nonoccluding right upper lobe pulmonary embolus. 2. Incidental azygos lobe, chronic bony findings, and old granulomatous disease.
[2022-05-06 12:33] LABS: INFLUENZA A NEGATIVE (NEGATIVE); INFLUENZA B NEGATIVE (NEGATIVE); RESPIRATORY SYNCTIAL VIRUS NEGATIVE (Negative); SARS-CoV-2 Xpert Express NEGATIVE (NEGATIVE)
[2022-05-06] MEDS ORDERED: ENOXAPARIN SODIUM SQ ONE (13:03)
[2022-05-06] MEDS ORDERED: ENALAPRILAT 2.5 MG INJECTION IV SCH (13:47)
[2022-05-06] MEDS: Sodium Chloride 0.9% 1000 ML 1,000 ML IV SCH (13:50)
[2022-05-06] MEDS: ENOXAPARIN SODIUM SQ SCH (14:27)
[2022-05-06] MEDS: FEOSOL 325 MG PO SCH (15:57)
[2022-05-06] MEDS ORDERED: Protonix 40MG Tablet PO SCH (16:00)
[2022-05-06] MEDS: NORCO 5/325 MG PO PRN (16:17)
[2022-05-06] MEDS: ENALAPRILAT 2.5 MG INJECTION IV PRN (16:17)
[2022-05-06] MEDS: Zofran 4 MG/2 ML VIAL IV PRN (18:38)
[2022-05-06] MEDS ORDERED: BENADRYL 25 MG CAPSULE PO PRN (20:28)
[2022-05-06] MEDS ORDERED: ELIQUIS 2.5 MG TABLET PO SCH (22:00)
[2022-05-07] MEDS: ENOXAPARIN SODIUM SQ SCH (00:04)
[2022-05-07] MEDS: TYLENOL 325 MG PO PRN (00:06)
[2022-05-07] MEDS: Zofran 4 MG/2 ML VIAL IV PRN ×2 (00:13→13:25)
[2022-05-07] MEDS ORDERED: PROTONIX 40 MG IV IV ONE (02:06)
[2022-05-07] MEDS: Sodium Chloride 0.9% 1000 ML 1,000 ML IV SCH ×3 (02:11→15:55)
[2022-05-07 02:23] LABS: Basophil (Absolute #) 0.07 x10^3/uL (0-0.4); Eosinophil % 0.4 % (0.00-5.0); Eosinophil (Absolute #) 0.05 x10^3/uL (0-0.5); Hematocrit 27.9 % (35-47); Hemoglobin 9.4 g/dL (12.0-16.0); Lymphocyte (Absolute #) 2.78 x10^3/uL (1.0-4.6); Lymphocytes % 23.2 % (24.0-44.0); Mean Cell Volume 99.6 fL (78-100); Mean Corpuscular Hemoglobin 33.6 pg (26-32); Mean Corpuscular Hgb Concent. 33.7 g/dL (32-36); Mean Platelet Volume 9.1 fL (7.5-11.0); Monocyte (Absolute #) 0.54 x10^3/uL (0.0-1.3); Monocytes % 4.5 % (0.0-12.0); Neutrophil % 70.8 % (36.0-66.0); Platelet Count 303 x10^3/uL (150-450); Red Cell Distribution Width 11.2 % (11.5-14.0)
[2022-05-07 02:35] LABS: ALBUMIN 2.9 g/dL (3.5-5.0); ALKALINE PHOSPHATASE 40 U/L (38-126); ANION GAP 12.6 MEQ/L (5-15); BLOOD UREA NITROGEN 45 mg/dL (7-17); CHLORIDE 99 mmol/L (98-107); Calcium 8.1 mg/dL (8.4-10.2); Carbon Dioxide 26 mmol/L (22-30); Creatinine 1 0.93 mg/dL (0.52-1.04); EST GLOMERULAR FILTRATION RATE > 60.0 ML/MIN; Glucose 190 mg/dL (74-106); Potassium 3.4 mmol/L (3.5-5.1); SGOT/AST 20 U/L (14-36); SGPT/ALT 15 U/L (0-35); SODIUM 135 mmol/L (137-145); Total Protein 5.1 g/dL (6.3-8.2)
[2022-05-07 03:45] LABS: ABO TYPING A; Antibody Screen NEGATIVE (NEGATIVE); RH TYPING POSITIVE
[2022-05-07 03:47] LABS: CROSS MATCH (PRBC) COMPATIBLE (COMPATIBLE)
[2022-05-07] MEDS ORDERED: Sodium Chloride 0.9% 500 ML 500 ML IV ONE ×2 (04:05→19:52)
[2022-05-07] MEDS ORDERED: Sodium Chloride 0.9% 500 ML 500 ML IV SCH (04:15)
[2022-05-07] MEDS ORDERED: PROTONIX 40 MG IV*** 80 MG in Sodium Chloride 0.9% 500 ML 500 ML IV SCH (08:45)
[2022-05-07 09:45] LABS: Hematocrit 26.2 % (35-47); Hemoglobin 8.7 g/dL (12.0-16.0); Mean Cell Volume 99.2 fL (78-100); Mean Corpuscular Hgb Concent. 33.2 g/dL (32-36); Mean Platelet Volume 9.8 fL (7.5-11.0); Platelet Count 232 x10^3/uL (150-450); Red Blood Count 2.64 x10^6/uL (4.1-5.4); Red Cell Distribution Width 13.1 % (11.5-14.0); White Blood Count 10.6 x10^3/uL (4.0-10.5)
[2022-05-07 09:55] LABS: ALBUMIN 1.9 g/dL (3.5-5.0); ALKALINE PHOSPHATASE 28 U/L (38-126); ANION GAP 9.4 MEQ/L (5-15); BLOOD UREA NITROGEN 57 mg/dL (7-17); CHLORIDE 116 mmol/L (98-107); Carbon Dioxide 18 mmol/L (22-30); Creatinine 1 0.61 mg/dL (0.52-1.04); EST GLOMERULAR FILTRATION RATE > 60.0 ML/MIN; Glucose 115 mg/dL (74-106); Potassium 3.3 mmol/L (3.5-5.1); SGOT/AST 16 U/L (14-36); SGPT/ALT 11 U/L (0-35); SODIUM 141 mmol/L (137-145); Total Protein 3.6 g/dL (6.3-8.2)
[2022-05-07 09:58] LABS: INR 1.32 (0.8-3.0); PROTIME 13.6 SECONDS (9.4-12.5); PTT 32.3 SECONDS (25.1-36.5)
[2022-05-07] MEDS ORDERED: PHENYLEPHRINE HCL ONE (10:00)
[2022-05-07] MEDS ORDERED: ENOXAPARIN SODIUM SQ SCH (10:00)
[2022-05-07] MEDS ORDERED: NON-FORMULARY ITEM (Esomeprazole Magnesium [Nexium] 20 MG Capsule.Dr) PO SCH (10:00)
[2022-05-07] MEDS: FEOSOL 325 MG PO SCH (10:09)
[2022-05-07] MEDS ORDERED: Xylocaine-Mpf 2% 5 Ml Vial ONE (10:26)
[2022-05-07] MEDS ORDERED: DIPRIVAN 200 MG/20 ML IV ONE (10:26)
[2022-05-07 10:33] LABS: CROSS MATCH (PRBC) COMPATIBLE (COMPATIBLE)
--- NOTE | 2022-05-07 11:31 | PCM.CONS ---
History of Present Illness - Reason for Consult Chief Complaint: Pulmonary embolus Requesting Provider: JOSE CARLOS ALEMAN Consulting Provider: LISHA PECK MD History of Present Illness: hx per chart review and d/w rn and pt. 51yo presents with viral sx, fragoso, malaise, myalgia, nausea, emesis. difficulty tolerating po. similar sx in her daughter but more severe. does have a personal history of peptic ulcer disease on and off for many years. takes a daily nexium. last egd around 2 years ago ok. never had a c scope. mild epigastric abdominal pain . overnight after starting therapeutic lovenox had copious frequent melanotic stools. had one coffeeground emesis. hypotension. tachycardia. hgb drop 6u. got 2u RBC. last lovenox at midnight. last bm around 930 melanotic. dizziness improved. bp better after 2 u rbc. "- History of Present Illness Time Seen by Provider: 05/06/22 10:36 Historian: patient Exam Limitations: no limitations Physician History: This is a 51-year-old white female has a history of anxiety issues and presents with approximate 3-day history of headache body aches vomiting nausea chest pain and shortness of breath. Her daughter has similar symptoms. She is unable to hold oral intake in. She has a family history significant for cardiac issues. Activities at Onset: none Quality: aching Chest Pain Radiation: no radiation Severity of Pain-Max: mild Severity of Pain-Current: mild Modifying Factors: Improves With: nothing Associated Symptoms: nausea, vomiting, shortness of breath, headache, No abdominal pain Prior Chest Pain/Cardiac Workup: no prior chest pain Nitro Today/Relief: no nitro taken today Aspirin Treatment Today: no aspirin today Allergies/Adverse Reactions: No Known Drug Allergies Allergy (Verified 05/06/22 11:02) Home Medications: Multivitamin [Daily Multivitamin] 1 each PO DAILY 06/15/17 [History] Ferrous Sulfate 325 mg [Feosol 325 mg] 325 mg PO DAILY 06/22/17 [History] [place]-3 Fatty Acids/Fish Oil [Fish Oil 1,000 mg Capsule] 1,000 mg PO DAILY 10/15/17 [History] Cetirizine HCl [Zyrtec] 10 mg PO DAILY 06/27/20 [History] Esomeprazole Magnesium [Nexium] 20 mg PO DAILY 06/27/20 [History] Hx Tetanus, Diphtheria Vaccination/Date Given: No Hx Influenza Vaccination/Date Given: No Hx Pneumococcal Vaccination/Date Given: No Travel Risk - International Travel Have you traveled outside of the country in past 3 weeks: No - Coronavirus Screening Are you exhibiting any of the following symptoms?: Yes Symptoms: Shortness of Breath, Vomiting/Diarrhea, Headaches/Body Aches/Fatigue Close contact with a COVID-19 positive Pt in past 14-21 Days: No - Review of Systems Constitutional: No Symptoms Eyes: No Symptoms Ears, Nose, & Throat: No Symptoms Respiratory: No Symptoms Cardiac: Chest Pain Abdominal/Gastrointestinal: Nausea, Vomiting, No Abdominal Pain Genitourinary Symptoms: No Symptoms Musculoskeletal: Arthralgias, Myalgias Skin: No Symptoms Neurological: No Symptoms Psychological: No Symptoms Endocrine: No Symptoms Hematologic/Lymphatic: No Symptoms Immunological/Allergic: No Symptoms All Other Systems: Reviewed and Negative - Past Medical History Pertinent Past Medical History: Yes Neurological History: Other ENT History: No Pertinent History Cardiac History: No Pertinent History Respiratory History: No Pertinent History Endocrine Medical History: No Pertinent History Musculoskeletal History: Arthritis GI Medical History: Ulcer History: No Pertinent History Psycho-Social History: Anxiety Female Reproductive Disorders: No Pertinent History Other Medical History: anemia. upper spinal/nerve pain - Past Surgical History Past Surgical History: Yes Neuro Surgical History: No Pertinent History Cardiac: No Pertinent History Respiratory: No Pertinent History Gastrointestinal: No Pertinent History Genitourinary: No Pertinent History Musculoskeletal: No Pertinent History Female Surgical History: Hysterectomy Other Surgical History: egd - Social History Smoking Status: Current every day smoker How long have you smoked: 20 yrs Exposure to second hand smoke: No Drug Use: none Patient Lives Alone: No " Medications & Allergies Home Medications: Home Medication List Multivitamin [Daily Multivitamin] 1 each PO DAILY 06/15/17 [History Confirmed 05/06/22] Ferrous Sulfate 325 mg [Feosol 325 mg] 325 mg PO DAILY 06/22/17 [History Confirmed 05/06/22] [place]-3 Fatty Acids/Fish Oil [Fish Oil 1,000 mg Capsule] 1,000 mg PO DAILY 10/15/17 [History Confirmed 05/06/22] Esomeprazole Magnesium [Nexium] 20 mg PO DAILY 06/27/20 [History Confirmed 05/06/22] Allergies/Adverse Reactions: Allergies Allergy/AdvReac Type Severity Reaction Status Date / Time No Known Drug Allergies Allergy Verified 05/06/22 11:02 - Past Medical History Past Medical History: Yes Neurological History: Other ENT History: No Pertinent History Cardiac History: No Pertinent History Respiratory History: No Pertinent History Endocrine Medical History: No Pertinent History Musculoskelatal History: Arthritis GI Medical History: Ulcer History: No Pertinent History Pyscho-Social History: Anxiety Reproductive Disorders: No Pertinent History Comment: anemia. upper spinal/nerve pain - Female History Are you now?: No - Past Surgical History Past Surgical History: Yes Neuro Surgical History: No Pertinent History Cardiac History: No Pertinent History Respiratory Surgery: No Pertinent History GI Surgical History: No Pertinent History Genitourinary Surgical Hx: No Pertinent History Musculskeletal Surgical Hx: No Pertinent History Female Surgical History: Hysterectomy Other Surgical History: egd - Social History Smoking Status: Former smoker How long have you smoked: 20 yrs Exposure to second hand smoke: No Alcohol: None Drug Use: none - Physical Exam Vital Signs: Vital Signs - 24 hr Temp Pulse Resp BP Pulse Ox 05/07/22 10:23 94 H 18 106/70 97 05/07/22 09:56 121 H 18 83/55 99 05/07/22 09:49 121 H 18 83/55 99 05/07/22 08:10 100 05/07/22 08:00 17 05/07/22 07:17 97.9 F 85 17 111/76 100 05/07/22 04:00 97.6 F 88 17 90/56 98 05/07/22 02:07 100 05/07/22 00:00 97.5 F 90 19 96 05/06/22 20:00 18 05/06/22 19:47 98.2 F 65 18 181/98 96 05/06/22 16:00 97.5 F 60 17 212/92 97 05/06/22 14:14 98.8 F 80 170/90 General Appearance: no apparent distress, alert Neurologic Exam: alert, oriented x 3, cooperative, normal mood/affect Eye Exam: eyes nml inspection, pale conjunctivae Neck Exam: normal inspection Respiratory Exam: No respiratory distress Cardiovascular Exam: tachycardia Gastrointestinal/Abdomen Exam: soft, tenderness, No distention, No mass, No guarding Pelvic Exam: not done Rectal Exam: deferred Extremity Exam: normal inspection Skin Exam: warm (mild epigastric ttp no r/g.) Results - Labs Lab/Micro Results: Lab Results-Last 24 Hours 05/06/22 05/06/22 05/06/22 Range/Units 10:40 10:40 11:25 WBC (4.0-10.5) x10^3/uL RBC (4.1-5.4) x10^6/uL Hgb (12.0-16.0) g/dL Hct (35-47) % MCV (78-100) fL MCH (26-32) pg MCHC (32-36) g/dL RDW (11.5-14.0) % Plt Count (150-450) x10^3/uL MPV (7.5-11.0) fL Gran % (36.0-66.0) % Immature Gran % (Auto) (0.00-0.4) % Nucleat RBC Rel Count (0.00-0.1) % Eos # (Auto) (0-0.5) x10^3/uL Immature Gran # (Auto) (0.00-0.03) x10^3u/L Absolute Lymphs (auto) (1.0-4.6) x10^3/uL Absolute Monos (auto) (0.0-1.3) x10^3/uL Absolute Nucleated RBC (0.00-0.01) x10^3u/L Lymphocytes % (24.0-44.0) % Monocytes % (0.0-12.0) % Eosinophils % (0.00-5.0) % Basophils % (0.0-0.4) % Absolute Granulocytes (1.4-6.9) x10^3/uL Basophils # (0-0.4) x10^3/uL PT (9.4-12.5) SECONDS INR (0.8-3.0) APTT (25.1-36.5) SECONDS D-Dimer 0.82 H* (0.0-0.50) mg/L Sodium (137-145) mmol/L Potassium (3.5-5.1) mmol/L Chloride (98-107) mmol/L Carbon Dioxide (22-30) mmol/L Anion Gap (5-15) MEQ/L BUN (7-17) mg/dL Creatinine (0.52-1.04) mg/dL Estimated GFR ML/MIN Glucose (74-106) mg/dL POC Glucometer (74 to 106) mg/dL Calcium (8.4-10.2) mg/dL Total Bilirubin (0.2-1.3) mg/dL AST (14-36) U/L ALT (0-35) U/L Alkaline Phosphatase (38-126) U/L Troponin I 0.028 (0.000-0.034) ng/mL Serum Total Protein (6.3-8.2) g/dL Albumin (3.5-5.0) g/dL Stool Occult Blood (NEGATIVE) Monoscreen NEGATIVE (Negative) Influenza Type A Ag (NEGATIVE) Influenza Type B Ag (NEGATIVE) RSV (PCR) (Negative) SARS-CoV-2 (PCR) (NEGATIVE) ABO Group Rh Factor Antibody Screen (NEGATIVE) Crossmatch (COMPATIBLE) 05/06/22 05/06/22 05/06/22 Range/Units 11:26 13:20 16:55 WBC (4.0-10.5) x10^3/uL RBC (4.1-5.4) x10^6/uL Hgb (12.0-16.0) g/dL Hct (35-47) % MCV (78-100) fL MCH (26-32) pg MCHC (32-36) g/dL RDW (11.5-14.0) % Plt Count (150-450) x10^3/uL MPV (7.5-11.0) fL Gran % (36.0-66.0) % Immature Gran % (Auto) (0.00-0.4) % Nucleat RBC Rel Count (0.00-0.1) % Eos # (Auto) (0-0.5) x10^3/uL Immature Gran # (Auto) (0.00-0.03) x10^3u/L Absolute Lymphs (auto) (1.0-4.6) x10^3/uL Absolute Monos (auto) (0.0-1.3) x10^3/uL Absolute Nucleated RBC (0.00-0.01) x10^3u/L Lymphocytes % (24.0-44.0) % Monocytes % (0.0-12.0) % Eosinophils % (0.00-5.0) % Basophils % (0.0-0.4) % Absolute Granulocytes (1.4-6.9) x10^3/uL Basophils # (0-0.4) x10^3/uL PT (9.4-12.5) SECONDS INR (0.8-3.0) APTT (25.1-36.5) SECONDS D-Dimer (0.0-0.50) mg/L Sodium (137-145) mmol/L Potassium (3.5-5.1) mmol/L Chloride (98-107) mmol/L Carbon Dioxide (22-30) mmol/L Anion Gap (5-15) MEQ/L BUN (7-17) mg/dL Creatinine (0.52-1.04) mg/dL Estimated GFR ML/MIN Glucose (74-106) mg/dL POC Glucometer (74 to 106) mg/dL Calcium (8.4-10.2) mg/dL Total Bilirubin (0.2-1.3) mg/dL AST (14-36) U/L ALT (0-35) U/L Alkaline Phosphatase (38-126) U/L Troponin I 0.034 0.023 (0.000-0.034) ng/mL Serum Total Protein (6.3-8.2) g/dL Albumin (3.5-5.0) g/dL Stool Occult Blood (NEGATIVE) Monoscreen (Negative) Influenza Type A Ag NEGATIVE (NEGATIVE) Influenza Type B Ag NEGATIVE (NEGATIVE) RSV (PCR) NEGATIVE (Negative) SARS-CoV-2 (PCR) NEGATIVE (NEGATIVE) ABO Group Rh Factor Antibody Screen (NEGATIVE) Crossmatch (COMPATIBLE) 05/06/22 05/06/22 05/07/22 Range/Units 19:40 22:38 02:09 WBC (4.0-10.5) x10^3/uL RBC (4.1-5.4) x10^6/uL Hgb (12.0-16.0) g/dL Hct (35-47) % MCV (78-100) fL MCH (26-32) pg MCHC (32-36) g/dL RDW (11.5-14.0) % Plt Count (150-450) x10^3/uL MPV (7.5-11.0) fL Gran % (36.0-66.0) % Immature Gran % (Auto) (0.00-0.4) % Nucleat RBC Rel Count (0.00-0.1) % Eos # (Auto) (0-0.5) x10^3/uL Immature Gran # (Auto) (0.00-0.03) x10^3u/L Absolute Lymphs (auto) (1.0-4.6) x10^3/uL Absolute Monos (auto) (0.0-1.3) x10^3/uL Absolute Nucleated RBC (0.00-0.01) x10^3u/L Lymphocytes % (24.0-44.0) % Monocytes % (0.0-12.0) % Eosinophils % (0.00-5.0) % Basophils % (0.0-0.4) % Absolute Granulocytes (1.4-6.9) x10^3/uL Basophils # (0-0.4) x10^3/uL PT (9.4-12.5) SECONDS INR (0.8-3.0) APTT (25.1-36.5) SECONDS D-Dimer (0.0-0.50) mg/L Sodium (137-145) mmol/L Potassium (3.5-5.1) mmol/L Chloride (98-107) mmol/L Carbon Dioxide (22-30) mmol/L Anion Gap (5-15) MEQ/L BUN (7-17) mg/dL Creatinine (0.52-1.04) mg/dL Estimated GFR ML/MIN Glucose (74-106) mg/dL POC Glucometer 203 H (74 to 106) mg/dL Calcium (8.4-10.2) mg/dL Total Bilirubin (0.2-1.3) mg/dL AST (14-36) U/L ALT (0-35) U/L Alkaline Phosphatase (38-126) U/L Troponin I 0.020 0.017 (0.000-0.034) ng/mL Serum Total Protein (6.3-8.2) g/dL Albumin (3.5-5.0) g/dL Stool Occult Blood (NEGATIVE) Monoscreen (Negative) Influenza Type A Ag (NEGATIVE) Influenza Type B Ag (NEGATIVE) RSV (PCR) (Negative) SARS-CoV-2 (PCR) (NEGATIVE) ABO Group Rh Factor Antibody Screen (NEGATIVE) Crossmatch (COMPATIBLE) 05/07/22 05/07/22 05/07/22 Range/Units 02:20 02:20 02:30 WBC 12.0 H (4.0-10.5) x10^3/uL RBC 2.80 L (4.1-5.4) x10^6/uL Hgb 9.4 L D (12.0-16.0) g/dL Hct 27.9 L (35-47) % MCV 99.6 (78-100) fL MCH 33.6 H (26-32) pg MCHC 33.7 (32-36) g/dL RDW 11.2 L (11.5-14.0) % Plt Count 303 (150-450) x10^3/uL MPV 9.1 (7.5-11.0) fL Gran % 70.8 H (36.0-66.0) % Immature Gran % (Auto) 0.5 H (0.00-0.4) % Nucleat RBC Rel Count 0.0 (0.00-0.1) % Eos # (Auto) 0.05 (0-0.5) x10^3/uL Immature Gran # (Auto) 0.06 H (0.00-0.03) x10^3u/L Absolute Lymphs (auto) 2.78 (1.0-4.6) x10^3/uL Absolute Monos (auto) 0.54 (0.0-1.3) x10^3/uL Absolute Nucleated RBC 0.00 (0.00-0.01) x10^3u/L Lymphocytes % 23.2 L (24.0-44.0) % Monocytes % 4.5 (0.0-12.0) % Eosinophils % 0.4 (0.00-5.0) % Basophils % 0.6 (0.0-0.4) % Absolute Granulocytes 8.50 H (1.4-6.9) x10^3/uL Basophils # 0.07 (0-0.4) x10^3/uL PT (9.4-12.5) SECONDS INR (0.8-3.0) APTT (25.1-36.5) SECONDS D-Dimer (0.0-0.50) mg/L Sodium 135 L (137-145) mmol/L Potassium 3.4 L (3.5-5.1) mmol/L Chloride 99 (98-107) mmol/L Carbon Dioxide 26 (22-30) mmol/L Anion Gap 12.6 (5-15) MEQ/L BUN 45 H (7-17) mg/dL Creatinine 0.93 (0.52-1.04) mg/dL Estimated GFR > 60.0 ML/MIN Glucose 190 H (74-106) mg/dL POC Glucometer (74 to 106) mg/dL Calcium 8.1 L D (8.4-10.2) mg/dL Total Bilirubin 0.50 (0.2-1.3) mg/dL AST 20 (14-36) U/L ALT 15 (0-35) U/L Alkaline Phosphatase 40 (38-126) U/L Troponin I (0.000-0.034) ng/mL Serum Total Protein 5.1 L (6.3-8.2) g/dL Albumin 2.9 L (3.5-5.0) g/dL Stool Occult Blood (NEGATIVE) Monoscreen (Negative) Influenza Type A Ag (NEGATIVE) Influenza Type B Ag (NEGATIVE) RSV (PCR) (Negative) SARS-CoV-2 (PCR) (NEGATIVE) ABO Group Rh Factor Antibody Screen (NEGATIVE) Crossmatch COMPATIBLE (COMPATIBLE) 05/07/22 05/07/22 05/07/22 Range/Units 03:45 09:25 09:25 WBC (4.0-10.5) x10^3/uL RBC (4.1-5.4) x10^6/uL Hgb (12.0-16.0) g/dL Hct (35-47) % MCV (78-100) fL MCH (26-32) pg MCHC (32-36) g/dL RDW (11.5-14.0) % Plt Count (150-450) x10^3/uL MPV (7.5-11.0) fL Gran % (36.0-66.0) % Immature Gran % (Auto) (0.00-0.4) % Nucleat RBC Rel Count (0.00-0.1) % Eos # (Auto) (0-0.5) x10^3/uL Immature Gran # (Auto) (0.00-0.03) x10^3u/L Absolute Lymphs (auto) (1.0-4.6) x10^3/uL Absolute Monos (auto) (0.0-1.3) x10^3/uL Absolute Nucleated RBC (0.00-0.01) x10^3u/L Lymphocytes % (24.0-44.0) % Monocytes % (0.0-12.0) % Eosinophils % (0.00-5.0) % Basophils % (0.0-0.4) % Absolute Granulocytes (1.4-6.9) x10^3/uL Basophils # (0-0.4) x10^3/uL PT (9.4-12.5) SECONDS INR (0.8-3.0) APTT (25.1-36.5) SECONDS D-Dimer (0.0-0.50) mg/L Sodium (137-145) mmol/L Potassium (3.5-5.1) mmol/L Chloride (98-107) mmol/L Carbon Dioxide (22-30) mmol/L Anion Gap (5-15) MEQ/L BUN (7-17) mg/dL Creatinine (0.52-1.04) mg/dL Estimated GFR ML/MIN Glucose (74-106) mg/dL POC Glucometer (74 to 106) mg/dL Calcium (8.4-10.2) mg/dL Total Bilirubin (0.2-1.3) mg/dL AST (14-36) U/L ALT (0-35) U/L Alkaline Phosphatase (38-126) U/L Troponin I (0.000-0.034) ng/mL Serum Total Protein (6.3-8.2) g/dL Albumin (3.5-5.0) g/dL Stool Occult Blood POSITIVE A (NEGATIVE) Monoscreen (Negative) Influenza Type A Ag (NEGATIVE) Influenza Type B Ag (NEGATIVE) RSV (PCR) (Negative) SARS-CoV-2 (PCR) (NEGATIVE) ABO Group Rh Factor Antibody Screen (NEGATIVE) Crossmatch COMPATIBLE COMPATIBLE (COMPATIBLE) 05/07/22 05/07/22 05/07/22 Range/Units 09:37 09:37 09:37 WBC 10.6 H (4.0-10.5) x10^3/uL RBC 2.64 L (4.1-5.4) x10^6/uL Hgb 8.7 L (12.0-16.0) g/dL Hct 26.2 L (35-47) % MCV 99.2 (78-100) fL MCH 33.0 H (26-32) pg MCHC 33.2 (32-36) g/dL RDW 13.1 (11.5-14.0) % Plt Count 232 (150-450) x10^3/uL MPV 9.8 (7.5-11.0) fL Gran % (36.0-66.0) % Immature Gran % (Auto) (0.00-0.4) % Nucleat RBC Rel Count (0.00-0.1) % Eos # (Auto) (0-0.5) x10^3/uL Immature Gran # (Auto) (0.00-0.03) x10^3u/L Absolute Lymphs (auto) (1.0-4.6) x10^3/uL Absolute Monos (auto) (0.0-1.3) x10^3/uL Absolute Nucleated RBC (0.00-0.01) x10^3u/L Lymphocytes % (24.0-44.0) % Monocytes % (0.0-12.0) % Eosinophils % (0.00-5.0) % Basophils % (0.0-0.4) % Absolute Granulocytes (1.4-6.9) x10^3/uL Basophils # (0-0.4) x10^3/uL PT 13.6 H (9.4-12.5) SECONDS INR 1.32 (0.8-3.0) APTT 32.3 (25.1-36.5) SECONDS D-Dimer (0.0-0.50) mg/L Sodium 141 (137-145) mmol/L Potassium 3.3 L (3.5-5.1) mmol/L Chloride 116 H D (98-107) mmol/L Carbon Dioxide 18 L (22-30) mmol/L Anion Gap 9.4 (5-15) MEQ/L BUN 57 H (7-17) mg/dL Creatinine 0.61 (0.52-1.04) mg/dL Estimated GFR > 60.0 ML/MIN Glucose 115 H (74-106) mg/dL POC Glucometer (74 to 106) mg/dL Calcium 6.0 L D (8.4-10.2) mg/dL Total Bilirubin 0.30 (0.2-1.3) mg/dL AST 16 (14-36) U/L ALT 11 (0-35) U/L Alkaline Phosphatase 28 L (38-126) U/L Troponin I (0.000-0.034) ng/mL Serum Total Protein 3.6 L (6.3-8.2) g/dL Albumin 1.9 L (3.5-5.0) g/dL Stool Occult Blood (NEGATIVE) Monoscreen (Negative) Influenza Type A Ag (NEGATIVE) Influenza Type B Ag (NEGATIVE) RSV (PCR) (Negative) SARS-CoV-2 (PCR) (NEGATIVE) ABO Group Rh Factor Antibody Screen (NEGATIVE) Crossmatch (COMPATIBLE) 05/07/22 Range/Units Unknown WBC (4.0-10.5) x10^3/uL RBC (4.1-5.4) x10^6/uL Hgb (12.0-16.0) g/dL Hct (35-47) % MCV (78-100) fL MCH (26-32) pg MCHC (32-36) g/dL RDW (11.5-14.0) % Plt Count (150-450) x10^3/uL MPV (7.5-11.0) fL Gran % (36.0-66.0) % Immature Gran % (Auto) (0.00-0.4) % Nucleat RBC Rel Count (0.00-0.1) % Eos # (Auto) (0-0.5) x10^3/uL Immature Gran # (Auto) (0.00-0.03) x10^3u/L Absolute Lymphs (auto) (1.0-4.6) x10^3/uL Absolute Monos (auto) (0.0-1.3) x10^3/uL Absolute Nucleated RBC (0.00-0.01) x10^3u/L Lymphocytes % (24.0-44.0) % Monocytes % (0.0-12.0) % Eosinophils % (0.00-5.0) % Basophils % (0.0-0.4) % Absolute Granulocytes (1.4-6.9) x10^3/uL Basophils # (0-0.4) x10^3/uL PT (9.4-12.5) SECONDS INR (0.8-3.0) APTT (25.1-36.5) SECONDS D-Dimer (0.0-0.50) mg/L Sodium (137-145) mmol/L Potassium (3.5-5.1) mmol/L Chloride (98-107) mmol/L Carbon Dioxide (22-30) mmol/L Anion Gap (5-15) MEQ/L BUN (7-17) mg/dL Creatinine (0.52-1.04) mg/dL Estimated GFR ML/MIN Glucose (74-106) mg/dL POC Glucometer (74 to 106) mg/dL Calcium (8.4-10.2) mg/dL Total Bilirubin (0.2-1.3) mg/dL AST (14-36) U/L ALT (0-35) U/L Alkaline Phosphatase (38-126) U/L Troponin I (0.000-0.034) ng/mL Serum Total Protein (6.3-8.2) g/dL Albumin (3.5-5.0) g/dL Stool Occult Blood (NEGATIVE) Monoscreen (Negative) Influenza Type A Ag (NEGATIVE) Influenza Type B Ag (NEGATIVE) RSV (PCR) (Negative) SARS-CoV-2 (PCR) (NEGATIVE) ABO Group A Rh Factor POSITIVE Antibody Screen NEGATIVE (NEGATIVE) Crossmatch COMPATIBLE (COMPATIBLE) - Radiology Impressions Radiology Exams & Impressions: Radiology Procedures Category Date Time Status CHEST 1 VIEW (PORTABLE) Stat Exams 05/06/22 10:37 Completed CHEST WITH CONTRAST [CT] Stat Exams 05/06/22 11:48 Completed - Other Procedures and Tests Respiratory Therapy 05/07/22 02:07 Oxygen Nasal Cannula 2 lpm Assessment/Plan (1) GI bleed Current Visit: No Status: Acute Assessment & Plan: 51yo female with GIB, hemodynamic instabilty after starting therapeutic lovenox for PE, also with viral like sx panel negative. -to EGD now. -will have to hold thinner. -protonix 40 bid iv. -calcium. -serial hemoglobins. -will defer to medicine if she would need IVC filter etc. Code(s): K92.2 - GASTROINTESTINAL HEMORRHAGE, UNSPECIFIED
[2022-05-07] MEDS ORDERED: Sodium Chloride 0.9% 1000 ML 1,000 ML ONE (11:40)
[2022-05-07] MEDS ORDERED: Epinephrine Preservative Free 1 MG/ML ONE (12:15)
[2022-05-07] MEDS ORDERED: Zofran 4 MG/2 ML VIAL ONE (12:15)
[2022-05-07] MEDS ORDERED: BRIDION 200MG/2ML IV ONE (12:25)
[2022-05-07] MEDS ORDERED: Versed 2 MG/2 ML Injection ONE (12:41)
[2022-05-07] MEDS ORDERED: DEXMEDETOMIDINE 80 MCG/20ML-NS IV ONE (12:49)
[2022-05-07] MEDS ORDERED: Lasix 20 MG/2 ML ONE (13:05)
--- NOTE | 2022-05-07 13:07 | OP ---
SURGERY DATE/TIME: 05/07/2022 1144 PREOPERATIVE DIAGNOSIS: GI bleed. POSTOPERATIVE DIAGNOSIS: 1) GI bleed. 2) Gastric ulcer. PROCEDURE: EGD with control of bleeding. SURGEON: Nikos Guerra M.D. ANESTHESIA: General. ESTIMATED BLOOD LOSS: Minimal intraoperative loss. SPECIMEN: Antral biopsy for Helicobacter pylori. PATIENT CONDITION: Stable. COMPLICATIONS: None. HISTORY: The patient is a 51-year-old female with history of peptic ulcer disease presents with viral-like symptoms. CT scan showed likely segmental pulmonary embolism and was started on blood thinner for that and then started developing copious melanotic stools and had coffee ground emesis and became hemodynamically unstable, transferred to the ICU. She got 2 units of blood. She was prepared for EGD, discussed with the patient and she elected to proceed. FINDINGS: A 2 cm prepyloric gastric ulcer. There is a clean base. The clot was removed and there was just a little ooze without any visible vessel. Epinephrine is injected. Gold probe bipolar hemostasis. DESCRIPTION OF PROCEDURE: The patient was brought to operating room. She was routinely positioned, prepared. Time out is performed. Anesthesia with IV anesthesia and then the gastroscope inserted and advanced to the stomach. There was copious old blood in the stomach. The scope was then withdrawn and general endotracheal anesthesia induced. At that point the patient is then repositioned and the scope reintroduced and advanced to the stomach. There is copious old blood in the stomach. There is clot in the antral area. The scope is advanced to the duodenum. The duodenum is normal in appearance. The clot is then removed from the antrum and there is a 2 cm clean base prepyloric ulcer. There was no active bleeding at the beginning of the procedure and with the clot removed there is just a scant ooze from the peripheral edge of the lesion. There is no visible vessel. 1:10,000 epinephrine injected in the quadrant. The Gold probe bipolar used for hemostasis. The area of concern was cauterized. At that point there is excellent hemostasis, completely dry. Again, completely visualized and no visible vessel or anything that could be clipped. The stomach is mostly suctioned out but there is some blood clot that cannot be suctioned out so NG tube placed and visualized in the stomach and the scope was then withdrawn and secured. Overall, the patient tolerated the procedure well. RECOMMENDATIONS: I recommend Protonix 40 mg IV b.i.d., Carafate 1 gm. I will have to discuss with her primary care as she certainly cannot be on therapeutic blood thinner and may need inferior vena cava filter if this is determined to be a real pulmonary embolism.
[2022-05-07] MEDS: SODIUM CHLORIDE IV SCH ×2 (13:28→16:35)
[2022-05-07] MEDS: DEXMEDETOMIDINE IV SCH ×2 (13:28→16:35)
[2022-05-07] MEDS ORDERED: CHLORASEPTIC SPRAY 180 ML PO PRN (13:35)
[2022-05-07 13:45] LABS: Hematocrit 27.3 % (35-47)
[2022-05-07 13:47] LABS: Hemoglobin 9.5 g/dL (12.0-16.0)
[2022-05-07] MEDS: PROTONIX 40 MG IV IV SCH ×2 (13:53→21:59)
[2022-05-07] MEDS: Carafate 1 GM PO SCH ×2 (13:53→21:45)
[2022-05-07] MEDS ORDERED: CALCIUM GLUCONATE IV SCH (14:00)
[2022-05-07] MEDS ORDERED: SODIUM CHLORIDE 0.9% IV SCH (14:00)
[2022-05-07 19:23] LABS: Hematocrit 23.1 % (35-47)
[2022-05-07 19:36] LABS: ALBUMIN 2.4 g/dL (3.5-5.0); ALKALINE PHOSPHATASE 34 U/L (38-126); ANION GAP 7.6 MEQ/L (5-15); BLOOD UREA NITROGEN 51 mg/dL (7-17); CHLORIDE 111 mmol/L (98-107); Carbon Dioxide 24 mmol/L (22-30); Creatinine 1 0.54 mg/dL (0.52-1.04); EST GLOMERULAR FILTRATION RATE > 60.0 ML/MIN; Glucose 102 mg/dL (74-106); Potassium 3.1 mmol/L (3.5-5.1); SGOT/AST 22 U/L (14-36); SGPT/ALT 14 U/L (0-35); SODIUM 139 mmol/L (137-145); Total Protein 4.7 g/dL (6.3-8.2)
[2022-05-07 19:38] LABS: Calcium 8.3 mg/dL (8.4-10.2)
[2022-05-07] MEDS: Ambien 10 MG PO PRN (21:45)
[2022-05-07] MEDS: ENALAPRILAT 2.5 MG INJECTION IV PRN (22:15)
[2022-05-08] MEDS: Sodium Chloride 0.9% 1000 ML 1,000 ML IV SCH (01:10)
[2022-05-08] MEDS: NORCO 5/325 MG PO PRN (04:05)
[2022-05-08 04:14] LABS: Absolute Neutrophil Ct (ANC) 11.55 x10^3/uL (1.4-6.9); Basophil (Absolute #) 0.08 x10^3/uL (0-0.4); Eosinophil % 0.1 % (0.00-5.0); Eosinophil (Absolute #) 0.01 x10^3/uL (0-0.5); Hematocrit 29.8 % (35-47); Hemoglobin 10.2 g/dL (12.0-16.0); Lymphocyte (Absolute #) 3.28 x10^3/uL (1.0-4.6); Lymphocytes % 20.6 % (24.0-44.0); Mean Cell Volume 91.7 fL (78-100); Mean Corpuscular Hemoglobin 31.4 pg (26-32); Mean Corpuscular Hgb Concent. 34.2 g/dL (32-36); Mean Platelet Volume 9.6 fL (7.5-11.0); Monocyte (Absolute #) 0.93 x10^3/uL (0.0-1.3); Monocytes % 5.8 % (0.0-12.0); Neutrophil % 72.5 % (36.0-66.0); Platelet Count 200 x10^3/uL (150-450); Red Blood Count 3.25 x10^6/uL (4.1-5.4); Red Cell Distribution Width 15.4 % (11.5-14.0); White Blood Count 15.9 x10^3/uL (4.0-10.5)
[2022-05-08 04:22] LABS: ALBUMIN 2.7 g/dL (3.5-5.0); ALKALINE PHOSPHATASE 41 U/L (38-126); ANION GAP 7.9 MEQ/L (5-15); BLOOD UREA NITROGEN 30 mg/dL (7-17); CHLORIDE 112 mmol/L (98-107); Carbon Dioxide 25 mmol/L (22-30); Creatinine 1 0.52 mg/dL (0.52-1.04); EST GLOMERULAR FILTRATION RATE > 60.0 ML/MIN; Glucose 98 mg/dL (74-106); SGOT/AST 28 U/L (14-36); SGPT/ALT 15 U/L (0-35); SODIUM 142 mmol/L (137-145)
[2022-05-08 04:25] LABS: Potassium 2.7 mmol/L (3.5-5.1)
[2022-05-08] MEDS: POTASSIUM CHLORIDE 20 mEq IN WATER 100ML 20 MEQ/100 ML BAG IV SCH ×2 (06:45→08:45)
--- NOTE | 2022-05-08 07:52 | HP ---
CHIEF COMPLAINT: Vomiting of blood. HISTORY OF PRESENT ILLNESS: The patient is a 51-year-old white female who has had previous history of gastric ulcers and previous episodes of hematemesis, presents again now with similar episode. The most previous episode is approximately two years ago. However the patient has not been well and not been seen in our facility for the last two years. The patient presented with a three day history of body aches and nausea. She was seen in the emergency room and on evaluation was also found to have a slightly elevated D-dimer. CT scan per pulmonary embolism protocol was positive for small nonoccluding pulmonary emboli after which the patient was given Lovenox and that is when she broke loose and started bleeding with a drop in her hemoglobin of several grams. PAST MEDICAL/SURGICAL HISTORY: The patient's medical history otherwise is essentially unremarkable. HOME MEDICATIONS: Iron 325 mg daily, multivitamins, fish oil. She takes Zyrtec and Nexium at 20 mg a day. ALLERGIES: NKDA. PHYSICAL EXAMINATION: The patient's vital signs on admission showed her temperature to be 98.8F, pulse 74, respiratory rate 20 and blood pressure 191/131. O2 saturation 97%. HEENT: Normocephalic, atraumatic. Pupils equal round reactive to light. Extraocular movements intact. Oropharynx was dry. NECK: Supple without lymphadenopathy, thyromegaly or JVD. CHEST: Clear to auscultation. HEART: Regular rate and rhythm without murmurs, rubs or gallops. ABDOMEN: Tender. No palpable masses. EXTREMITIES: Without cyanosis, clubbing or edema. NEUROLOGIC: The patient is alert and oriented x3 without focal deficits. LAB DATA AND TESTS: Laboratory studies initially showed her hemoglobin to be 15. Her metabolic panel showed sodium 133, potassium 3.2. Electrolytes were normal. Troponin was 0.034. Her swabs for influenza, respiratory syncytial virus and COVID were negative. Her CT scan again showed a small nonoccluding right upper lobe pulmonary embolus but was otherwise essentially negative. ASSESSMENT: A patient with GI bleed, significant loss in hemoglobin down to 9 on our evaluation. The patient has been placed in ICU. She has received already one unit of blood and will receive a second unit of blood. We will also type and cross for two more. We consulted with surgery to let them know about the significance of her episodes. She has also seen some black tarry stools coming through with going to the bathroom about every 20 minutes. Her most recent vital signs showed her blood pressure down to the 90's systolic. The patient is diaphoretic. Again, we have discussed the urgency of the problem with her surgeon who will be coming down to do the endoscopic evaluation. We will monitor her closely in the ICU and provide her with IV Protonix drip as well as IV fluids.
[2022-05-08] MEDS: D5W/0.45NS W/ 20mEq KCl 1000 ML 1,000 ML IV SCH ×2 (08:44→16:17)
[2022-05-08] MEDS: PROTONIX 40 MG IV IV SCH ×2 (08:45→21:21)
[2022-05-08] MEDS: FEOSOL 325 MG PO SCH (08:45)
[2022-05-08] MEDS: Carafate 1 GM PO SCH ×4 (08:45→21:21)
[2022-05-08] MEDS: ENALAPRILAT 2.5 MG INJECTION IV PRN (16:10)
[2022-05-08] MEDS: TYLENOL 325 MG PO PRN (16:11)
[2022-05-08] MEDS: Ambien 10 MG PO PRN (21:21)
[2022-05-09] MEDS: ENALAPRILAT 2.5 MG INJECTION IV PRN ×3 (00:11→21:05)
[2022-05-09] MEDS: D5W/0.45NS W/ 20mEq KCl 1000 ML 1,000 ML IV SCH ×3 (01:40→23:10)
[2022-05-09 04:49] LABS: Hematocrit 27.8 % (35-47); Hemoglobin 9.4 g/dL (12.0-16.0); Mean Corpuscular Hemoglobin 31.4 pg (26-32); Mean Corpuscular Hgb Concent. 33.8 g/dL (32-36); Mean Platelet Volume 9.8 fL (7.5-11.0); Platelet Count 207 x10^3/uL (150-450); Red Blood Count 2.99 x10^6/uL (4.1-5.4); Red Cell Distribution Width 15.2 % (11.5-14.0); White Blood Count 9.7 x10^3/uL (4.0-10.5)
[2022-05-09 05:25] LABS: ALBUMIN 2.8 g/dL (3.5-5.0); ALKALINE PHOSPHATASE 40 U/L (38-126); BLOOD UREA NITROGEN 5 mg/dL (7-17); CHLORIDE 107 mmol/L (98-107); Calcium 8.3 mg/dL (8.4-10.2); Carbon Dioxide 27 mmol/L (22-30); Creatinine 1 0.46 mg/dL (0.52-1.04); EST GLOMERULAR FILTRATION RATE > 60.0 ML/MIN; Glucose 96 mg/dL (74-106); SGOT/AST 66 U/L (14-36); SGPT/ALT 52 U/L (0-35); SODIUM 138 mmol/L (137-145); Total Protein 5.1 g/dL (6.3-8.2)
[2022-05-09 05:45] LABS: Potassium 2.9 mmol/L (3.5-5.1)
[2022-05-09] MEDS: Carafate 1 GM PO SCH ×4 (06:30→21:05)
[2022-05-09] MEDS: PROTONIX 40 MG IV IV SCH ×2 (09:30→21:05)
[2022-05-09] MEDS: POTASSIUM CHLORIDE 20 mEq IN WATER 100ML 20 MEQ/100 ML BAG IV SCH ×2 (09:31→11:57)
[2022-05-09] MEDS: FEOSOL 325 MG PO SCH (09:31)
--- NOTE | 2022-05-09 11:21 | PCM.NOTE ---
Date and Time: 05/09/22 1113 Subjective Assessment: Patient states she is worried about her 16 yr old being at home by herself since WED,also her 2 dogs. Is asking to go home. States is not hungry but liquids have not hurt her stomach. She has had iron tablet today and denies abdominal pain or burning. Denies cough or dyspnea or chest pain.Is a smoker but ok without a nicotene patch,does not want the patch. Diet was advanced to full liquid diet for lunch. Will give Ativan to treat elevated B/P due to her situational anxiety and she was appreciative of that. Is receiving K-rider now. Will recheck H/H and BMP after K-rider this afternoon. Will request Pulmonology consult re the tx of the PE Objective Exam General Appearance: anxiety (teared up about situation of nobody to helpwhile she is in hopsital) Neurologic Exam: alert, oriented x 3, cooperative Skin Exam: normal color, warm, dry Eye Exam: eyes nml inspection Ears, Nose, Throat Exam: moist mucous membranes, other (mild nasal congestion) Neck Exam: normal inspection Respiratory Exam: wheezing (few scattered eew) Gastrointestinal/Abdomen Exam: soft, normal bowel sounds (nontender,no guarding) Extremity Exam: normal inspection OBJECTIVE DATA Vital Signs: Vital Signs - 24 hr Temp Pulse Resp BP Pulse Ox 05/09/22 08:00 98.4 F 84 17 163/95 97 05/09/22 04:14 97.8 F 93 H 20 166/101 98 05/09/22 00:55 162/87 05/09/22 00:00 20 05/08/22 23:00 98.2 F 89 20 166/112 100 05/08/22 19:46 18 05/08/22 19:21 98.3 F 86 18 178/100 99 05/08/22 17:31 153/93 05/08/22 16:00 97.5 F 81 20 152/110 98 05/08/22 12:00 97.8 F 86 20 161/93 99 Pain Assessment - Last Documented Pain Intensity 0 Pain Scale Used 0-10 Pain Scale Intake and Output: Intake & Output 05/06/22 05/07/22 05/08/22 05/09/22 11:59 11:59 11:59 11:59 Intake Total 480 3532 4723 Output Total 1000 5350 800 Balance -520 -1500 5463 Weight 66.497 kg 66.497 kg 69.4 kg 68.1 kg Lab Results: Lab Results-Last 24 Hours 05/08/22 05/08/22 05/09/22 Range/Units 13:11 15:34 04:20 WBC 9.7 (4.0-10.5) x10^3/uL RBC 2.99 L (4.1-5.4) x10^6/uL Hgb 9.4 L (12.0-16.0) g/dL Hct 27.8 L (35-47) % MCV 93.0 (78-100) fL MCH 31.4 (26-32) pg MCHC 33.8 (32-36) g/dL RDW 15.2 H (11.5-14.0) % Plt Count 207 (150-450) x10^3/uL MPV 9.8 (7.5-11.0) fL Sodium (137-145) mmol/L Potassium 3.1 L (3.5-5.1) mmol/L Chloride (98-107) mmol/L Carbon Dioxide (22-30) mmol/L Anion Gap (5-15) MEQ/L BUN (7-17) mg/dL Creatinine (0.52-1.04) mg/dL Estimated GFR ML/MIN Glucose (74-106) mg/dL Calcium (8.4-10.2) mg/dL Total Bilirubin (0.2-1.3) mg/dL AST (14-36) U/L ALT (0-35) U/L Alkaline Phosphatase (38-126) U/L Serum Total Protein (6.3-8.2) g/dL Albumin (3.5-5.0) g/dL Procalcitonin < 0.030 L (0.030-0.080) ng/mL 05/09/22 Range/Units 04:20 WBC (4.0-10.5) x10^3/uL RBC (4.1-5.4) x10^6/uL Hgb (12.0-16.0) g/dL Hct (35-47) % MCV (78-100) fL MCH (26-32) pg MCHC (32-36) g/dL RDW (11.5-14.0) % Plt Count (150-450) x10^3/uL MPV (7.5-11.0) fL Sodium 138 (137-145) mmol/L Potassium 2.9 L* (3.5-5.1) mmol/L Chloride 107 (98-107) mmol/L Carbon Dioxide 27 (22-30) mmol/L Anion Gap 7.0 (5-15) MEQ/L BUN 5 L (7-17) mg/dL Creatinine 0.46 L (0.52-1.04) mg/dL Estimated GFR > 60.0 ML/MIN Glucose 96 (74-106) mg/dL Calcium 8.3 L (8.4-10.2) mg/dL Total Bilirubin 0.60 (0.2-1.3) mg/dL AST 66 H (14-36) U/L ALT 52 H (0-35) U/L Alkaline Phosphatase 40 (38-126) U/L Serum Total Protein 5.1 L (6.3-8.2) g/dL Albumin 2.8 L (3.5-5.0) g/dL Procalcitonin (0.030-0.080) ng/mL Assessment/Plan (1) GI bleed Current Visit: No Status: Resolved Qualifiers: GI bleed type/associated pathology: gastric ulcer Qualified Code(s): K25.4 - Chronic or unspecified gastric ulcer with hemorrhage Assessment & Plan: Will continue off blood thinners,received 4 units PRBC no BM and No N/V since EGD tx of gastric ulcer bleed. Code(s): K92.2 - GASTROINTESTINAL HEMORRHAGE, UNSPECIFIED (2) Anemia Current Visit: Yes Status: Acute Assessment & Plan: gastric ulcer-2cm prepyloric ulcer Code(s): D64.9 - ANEMIA, UNSPECIFIED (3) Hypokalemia Current Visit: Yes Status: Acute Assessment & Plan: k-rider infusing now Code(s): E87.6 - HYPOKALEMIA (4) HTN (hypertension) Current Visit: Yes Status: Acute Code(s): I10 - ESSENTIAL (PRIMARY) HYPERTENSION (5) Pulmonary embolus Current Visit: Yes Status: Suspected Qualifiers: Chronicity: acute Assessment & Plan: Not able to give anticoag due to acte GI,gastric ulcer- Dr Perea consult requested. Code(s): I26.99 - OTHER PULMONARY EMBOLISM WITHOUT ACUTE COR PULMONALE (6) Anxiety Current Visit: Yes Status: Acute Assessment & Plan: start Ativan low dose during hospital stay Code(s): F41.9 - ANXIETY DISORDER, UNSPECIFIED
[2022-05-09] MEDS: Ativan 0.5 MG PO PRN ×2 (12:03→21:07)
[2022-05-09] MEDS: NORVASC 5 MG PO SCH (12:54)
[2022-05-09] MEDS ORDERED: DUONEB 0.5-3 MG/3 ml Neb IH ONE (14:57)
[2022-05-09] MEDS ORDERED: DUONEB 0.5-3 MG/3 ml Neb IH PRN (15:16)
[2022-05-09 17:06] LABS: Hematocrit 28.5 % (35-47); Hemoglobin 9.6 g/dL (12.0-16.0)
[2022-05-09 17:18] LABS: ANION GAP 10.3 MEQ/L (5-15); BLOOD UREA NITROGEN 4 mg/dL (7-17); CHLORIDE 106 mmol/L (98-107); Calcium 8.8 mg/dL (8.4-10.2); Carbon Dioxide 27 mmol/L (22-30); Creatinine 1 0.43 mg/dL (0.52-1.04); EST GLOMERULAR FILTRATION RATE > 60.0 ML/MIN; Glucose 102 mg/dL (74-106); MAGNESIUM 1.7 mg/dL (1.6-2.3); Potassium 3.6 mmol/L (3.5-5.1); SODIUM 139 mmol/L (137-145)
--- NOTE | 2022-05-09 19:38 | XRAY ---
Indication: Pulmonary embolus. Two-dimensional sonogram and color Doppler imaging of the major venous vessels of the left and right leg performed. Comparison: None No thrombus seen in the examined deep venous vessels of the left and right leg including greater saphenous vein. Veins demonstrate normal compressibility. Venous waveforms are normal with and without augmentation. Impression: Left and right leg negative for DVT. Comment: Preliminary report given.
[2022-05-10 05:19] LABS: Basophil (Absolute #) 0.06 x10^3/uL (0-0.4); Eosinophil % 3.5 % (0.00-5.0); Eosinophil (Absolute #) 0.31 x10^3/uL (0-0.5); Hematocrit 26.8 % (35-47); Hemoglobin 9.1 g/dL (12.0-16.0); Lymphocytes % 28.5 % (24.0-44.0); Mean Corpuscular Hemoglobin 31.9 pg (26-32); Mean Platelet Volume 10.2 fL (7.5-11.0); Monocyte (Absolute #) 0.57 x10^3/uL (0.0-1.3); Monocytes % 6.5 % (0.0-12.0); Neutrophil % 60.6 % (36.0-66.0); Platelet Count 257 x10^3/uL (150-450); Red Blood Count 2.85 x10^6/uL (4.1-5.4); Red Cell Distribution Width 14.5 % (11.5-14.0); White Blood Count 8.8 x10^3/uL (4.0-10.5)
[2022-05-10 05:25] LABS: ALBUMIN 2.8 g/dL (3.5-5.0); ALKALINE PHOSPHATASE 46 U/L (38-126); ANION GAP 8.4 MEQ/L (5-15); BLOOD UREA NITROGEN 5 mg/dL (7-17); CHLORIDE 107 mmol/L (98-107); Calcium 8.6 mg/dL (8.4-10.2); Carbon Dioxide 27 mmol/L (22-30); EST GLOMERULAR FILTRATION RATE > 60.0 ML/MIN; Glucose 99 mg/dL (74-106); Potassium 3.5 mmol/L (3.5-5.1); SGOT/AST 77 U/L (14-36); SGPT/ALT 102 U/L (0-35); SODIUM 139 mmol/L (137-145); Total Protein 5.2 g/dL (6.3-8.2)
[2022-05-10] MEDS: ENALAPRILAT 2.5 MG INJECTION IV PRN (05:29)
[2022-05-10] MEDS: Carafate 1 GM PO SCH ×2 (06:44→10:55)
[2022-05-10] MEDS: TYLENOL 325 MG PO PRN (08:26)
[2022-05-10] MEDS: NORVASC 5 MG PO SCH (08:26)
[2022-05-10] MEDS: PROTONIX 40 MG IV IV SCH (08:26)
[2022-05-10] MEDS: FEOSOL 325 MG PO SCH (08:26)
--- NOTE | 2022-05-10 10:10 | PCM.DS ---
Discharge Summary Date of Admission: 05/07/22 08:00 Date of Discharge: 05/10/2022 Admitting Physician: JOSE CARLOS MANRIQUE Consults: Consults on Case 05/07/22 08:40 Consult Surgery ROUTINE 05/09/22 12:03 Consult Pulmonology ROUTINE Primary Care Provider: JOSE CARLOS MANRIQUE Allergies Allergies blood thinners Adverse Reaction (Severe, Uncoded 05/07/22 16:14) BLEEDING ULCERS Hospital Summary - Hospital Course Hospital Course: Patient is a 51yr old female patient of Dr Manrique's who presented to ER with N/V and low sternal chest pain radiating through to her back. Workup showed a small nonoccluding PE and she was started on Lovenox in ER . She had coffee ground emesis and hgb dropped and she was admitted and transfused [address] Guerra EGD showed 2 cm gastric ulcer which was injected with epi to stop the bleed. Patient was followed in ICU with serial H/H and IV Protonix and kept on clear liquid diet until able to tolerate a soft bland diet.She was hypertensive 160s/90s and amlodipine 5mg was started. Patient was anxious to get home to her 16yrold who was home alone,Ativan was helpful. - Vitals & Intake/Output Vital Signs: Vital Signs Temperature 98.8 F 05/10/22 07:45 Pulse Rate 85 05/10/22 07:45 Respiratory Rate 16 05/10/22 08:00 Blood Pressure 162/98 05/10/22 07:45 O2 Sat by Pulse Oximetry 98 05/10/22 07:45 Intake & Output: Intake & Output 05/07/22 05/08/22 05/09/22 05/10/22 11:59 11:59 11:59 11:59 Intake Total 480 2052 4723 3903 Output Total 1000 5350 800 Balance -520 -5562 3923 3903 Weight 66.497 kg 69.4 kg 68.1 kg 68 kg - Lab Result Diagrams: 05/10/22 04:15 05/10/22 04:15 Lab Results-Last 24 Hrs: Lab Results-Last 24 Hours 05/09/22 05/09/22 05/10/22 Range/Units 17:04 17:04 04:15 WBC 8.8 (4.0-10.5) x10^3/uL RBC 2.85 L (4.1-5.4) x10^6/uL Hgb 9.6 L 9.1 L (12.0-16.0) g/dL Hct 28.5 L 26.8 L (35-47) % MCV 94.0 (78-100) fL MCH 31.9 (26-32) pg MCHC 34.0 (32-36) g/dL RDW 14.5 H (11.5-14.0) % Plt Count 257 (150-450) x10^3/uL MPV 10.2 (7.5-11.0) fL Gran % 60.6 (36.0-66.0) % Immature Gran % (Auto) 0.2 (0.00-0.4) % Nucleat RBC Rel Count 0.0 (0.00-0.1) % Eos # (Auto) 0.31 (0-0.5) x10^3/uL Immature Gran # (Auto) 0.02 (0.00-0.03) x10^3u/L Absolute Lymphs (auto) 2.50 (1.0-4.6) x10^3/uL Absolute Monos (auto) 0.57 (0.0-1.3) x10^3/uL Absolute Nucleated RBC 0.00 (0.00-0.01) x10^3u/L Lymphocytes % 28.5 (24.0-44.0) % Monocytes % 6.5 (0.0-12.0) % Eosinophils % 3.5 (0.00-5.0) % Basophils % 0.7 (0.0-0.4) % Absolute Granulocytes 5.30 (1.4-6.9) x10^3/uL Basophils # 0.06 (0-0.4) x10^3/uL Sodium 139 (137-145) mmol/L Potassium 3.6 D (3.5-5.1) mmol/L Chloride 106 (98-107) mmol/L Carbon Dioxide 27 (22-30) mmol/L Anion Gap 10.3 (5-15) MEQ/L BUN 4 L (7-17) mg/dL Creatinine 0.43 L (0.52-1.04) mg/dL Estimated GFR > 60.0 ML/MIN Glucose 102 (74-106) mg/dL Calcium 8.8 (8.4-10.2) mg/dL Magnesium 1.7 (1.6-2.3) mg/dL Total Bilirubin (0.2-1.3) mg/dL AST (14-36) U/L ALT (0-35) U/L Alkaline Phosphatase (38-126) U/L Serum Total Protein (6.3-8.2) g/dL Albumin (3.5-5.0) g/dL 05/10/22 Range/Units 04:15 WBC (4.0-10.5) x10^3/uL RBC (4.1-5.4) x10^6/uL Hgb (12.0-16.0) g/dL Hct (35-47) % MCV (78-100) fL MCH (26-32) pg MCHC (32-36) g/dL RDW (11.5-14.0) % Plt Count (150-450) x10^3/uL MPV (7.5-11.0) fL Gran % (36.0-66.0) % Immature Gran % (Auto) (0.00-0.4) % Nucleat RBC Rel Count (0.00-0.1) % Eos # (Auto) (0-0.5) x10^3/uL Immature Gran # (Auto) (0.00-0.03) x10^3u/L Absolute Lymphs (auto) (1.0-4.6) x10^3/uL Absolute Monos (auto) (0.0-1.3) x10^3/uL Absolute Nucleated RBC (0.00-0.01) x10^3u/L Lymphocytes % (24.0-44.0) % Monocytes % (0.0-12.0) % Eosinophils % (0.00-5.0) % Basophils % (0.0-0.4) % Absolute Granulocytes (1.4-6.9) x10^3/uL Basophils # (0-0.4) x10^3/uL Sodium 139 (137-145) mmol/L Potassium 3.5 (3.5-5.1) mmol/L Chloride 107 (98-107) mmol/L Carbon Dioxide 27 (22-30) mmol/L Anion Gap 8.4 (5-15) MEQ/L BUN 5 L (7-17) mg/dL Creatinine 0.50 L (0.52-1.04) mg/dL Estimated GFR > 60.0 ML/MIN Glucose 99 (74-106) mg/dL Calcium 8.6 (8.4-10.2) mg/dL Magnesium (1.6-2.3) mg/dL Total Bilirubin 0.40 (0.2-1.3) mg/dL AST 77 H (14-36) U/L ALT 102 H (0-35) U/L Alkaline Phosphatase 46 (38-126) U/L Serum Total Protein 5.2 L (6.3-8.2) g/dL Albumin 2.8 L (3.5-5.0) g/dL Micro Results-Entire Visit: Microbiology 05/07/22 09:30 Urine Culture - Final Urine, Catheterized NO GROWTH - Radiology Exams Ordered Rad Exams-Entire Visit: Radiology Procedures Category Date Time Status VENOUS BILATERAL EXTREMITY [US] Stat Exams 05/09/22 13:47 Completed - Procedures and Test Procedures and Tests throughout Hospitalization: Therapy Orders & Screens 05/06/22 13:47 EKG REPEAT IN AM Comment: 05/07/22 02:07 Oxygen Nasal Cannula 2 lpm Comment: Diagnosis: Pulmonary embolus 05/09/22 12:02 Respiratory Therapy Assessment DAILY Comment: wheezing-neb tx Diagnosis: PULMONARY EMBOLUS, GI BLEED Final Diagnosis/Problem List - Final Discharge Diagnosis/Problem (1) GI bleed Current Visit: No Status: Resolved Code(s): K92.2 - GASTROINTESTINAL HEMORRHAGE, UNSPECIFIED (2) Anemia Current Visit: Yes Status: Acute Code(s): D64.9 - ANEMIA, UNSPECIFIED (3) Hypokalemia Current Visit: Yes Status: Acute Code(s): E87.6 - HYPOKALEMIA (4) HTN (hypertension) Current Visit: Yes Status: Acute Code(s): I10 - ESSENTIAL (PRIMARY) HYPERTENSION (5) Pulmonary embolus Current Visit: Yes Status: Suspected Code(s): I26.99 - OTHER PULMONARY EMBOLISM WITHOUT ACUTE COR PULMONALE (6) Anxiety Current Visit: Yes Status: Acute Code(s): F41.9 - ANXIETY DISORDER, UNSPECIFIED - Discharge Disposition: Home, Self-Care Condition: Stable Prescriptions: No Action Multivitamin [Daily Multivitamin] 1 each PO DAILY Ferrous Sulfate 325 mg [Feosol 325 mg] 325 mg PO DAILY Binford-3 Fatty Acids/Fish Oil [Fish Oil 1,000 mg Capsule] 1,000 mg PO DAILY Esomeprazole Magnesium [Nexium] 20 mg PO DAILY Instructions: Pulmonary Embolism (Blood Clot in the Lungs), Gastrointestinal Bleeding Follow up with: JOSE CARLOS MANRIQUE [Primary Care Provider] - LISHA GUERRA MD [ACTIVE STAFF] - Forms: Discharge Instructions
[2022-05-10 11:34] VITALS: BP 160/98; PULSE 80; O2SAT 94
== END 2022-05-10 11:23 | disposition home or self-care (01) | DRG 377 ==
LOC: ED 10:20 → MED SURG 13:40 → ICU 05-07 08:00 → OBSVTOIN 05-07 08:00
PROVIDERS: ADMIT Family Medicine; ATTEND Family Medicine
PROC: 0W3P8ZZ Control Bleeding in Gastrointestinal Tract, Via Natural or Artificial Opening Endoscopic (ICD-10-PCS; principal; 2022-05-07)
DX: K25.4 Chronic or unspecified gastric ulcer with hemorrhage (principal); I26.99 Other pulmonary embolism without acute cor pulmonale; K29.50 Unspecified chronic gastritis without bleeding; D64.9 Anemia, unspecified; I10 Essential (primary) hypertension; E87.6 Hypokalemia; R07.9 Chest pain, unspecified; F41.9 Anxiety disorder, unspecified; Z79.899 Other long term (current) drug therapy; Z20.828 Contact with and (suspected) exposure to other viral communicable diseases; Z79.01 Long term (current) use of anticoagulants; Z72.0 Tobacco use
CPT/HCPCS: 0241U; 36000; 36415; 36430; 36620; 71045; 71260; 76942; 80048; 80053; 82274; 82947; 83735; 84132; 84145; 84484; 85014; 85018; 85025; 85027; 85379; 85610; 85730; 86308; 86850; 86900; 86901; 86922; 87086; 93005; 93041; 93268; 93970; 94640; 94760; 96360; 96374; 99140; 99285; J0171; J0610; J1650; J1940; J2250; J2370; J2405; J2704; J3480; P9016; A9270-GY; G0328; G0378